=== PATIENT | female | born 1980 | race Caucasian/White ===

== ENCOUNTER 2017-03-02 09:15 | Emergency (ER) | payer BC ==
[~2017-03-02] VITALS: Ht 180.3 cm; Wt 101.2 kg
[~2017-03-02 09:15] MED LIST: FEXO180T84 PO; PREN-93 PO; RANI150T15 PO; TRAM-42 PO; TRAM50TA2 PO; flexeril
[2017-03-02] MEDS ORDERED: ORPHENADRINE 60 MG/2 ML (NORFLEX) AMP IM ONE (10:45)
[2017-03-02] MEDS ORDERED: KETOROLAC 60 MG/2 ML VIAL IM ONE (10:45)
[2017-03-02] MEDS ORDERED: TRAM-42 PO (10:46)
--- NOTE | 2017-03-02 10:46 | ED Upper Extremity ---
General Chief Complaint: Upper Extremity Stated Complaint: R SIDE ARM PAIN/TROUBLE BREATHING Nursing Triage Note: pt reports pain in right shoulder, arm, neck et side pain starting --relieved by ibuprofen. worsened on Friday, pain becoming severe. pain continues today. c/o pain with deep breathing et talking. Nursing Sepsis Screen: No Definite Risk Source: patient Exam Limitations: no limitations History of Present Illness Time seen by provider: 10:42 Initial Comments To ER with pain between the base of the neck and the right shoulder, pain to the right shoulder and arm worsened by movement of the right arm. Pain is also worsened by deep breathing. Denies any known injury. Onset: just prior to arrival Severity: moderate Pain/Injury Location: right shoulder, right arm Method of Injury: unknown Modifying Factors: Worse With Movement Allergies and Home Medications Allergies Coded Allergies: No Known Drug Allergies (Unverified Allergy, Unknown, 11/16/07) Home Medications Fexofenadine HCl 180 Mg Tablet, Unknown Dose PO, (Reported) Ranitidine HCl 150 Mg Tablet, Unknown Dose PO, (Reported) Tramadol HCl 50 Mg Tablet, Unknown Dose PO, (Reported) Tramadol HCl 50 Mg Tablet, 25-50 MG PO Q6H PRN for PAIN, #20 Prescribed by: BLADIMIR FRANCO on 07/21/15 0002 Tramadol HCl 50 Mg Tablet, 50 MG PO TID PRN for PAIN-MODERATE, #10 Prescribed by: JENA NOLAN on 03/02/17 1046 [flexeril] , Unknown Dose, (Reported) Constitutional: see HPI EENTM: see HPI Respiratory: no symptoms reported Cardiovascular: no symptoms reported Genitourinary: no symptoms reported Musculoskeletal: see HPI, muscle pain Skin: no symptoms reported Psychiatric/Neurological: No Symptoms Reported Past Rfwcsso-Keowrc-Xrhqyi Hx Patient Social History Alcohol Use: Denies Use Recreational Drug Use: No Smoking Status: Never a Smoker 2nd Hand Smoke Exposure: No Recent Foreign Travel: No Contact w/Someone Who Travel: No Recent Infectious Disease Expo: No Recent Hopitalizations: Yes () Immunizations Up To Date Tetanus Booster (TDap): Unknown PED Vaccines UTD: Yes Date of Influenza Vaccine: Jun 08, 2013 Seasonal Allergies Seasonal Allergies: Yes Surgeries HX Surgeries: Yes (r ovary removed) Surgeries: Appendectomy, Section, Gallbladder, Oophorectomy Respiratory Hx Respiratory Disorders: Yes Respiratory Disorders: Asthma Cardiovascular Hx Cardiac Disorders: No Neurological Hx Neurological Disorders: No Reproductive System Hx Reproductive Disorders: No Female Reproductive Disorders: Ovarian Cyst Genitourinary Hx Genitourinary Disorders: No Gastrointestinal Hx Gastrointestinal Disorders: No Musculoskeletal Hx Musculoskeletal Disorders: Yes Musculoskeletal Disorders: Arthritis, Chronic Back Pain Endocrine Hx Endocrine Disorders: No HEENT HX ENT Disorders: No ("sinus problems") Cancer Hx Cancer: No Psychosocial Hx Psychiatric Problems: No Integumentary HX Skin/Integumentary Disorder: No Blood Transfusions Hx Blood Disorders: No Adverse Reaction to a Blood Tr: No Family Medical History Significant Family History: DVT/PE, Diabetes, Hypertension Physical Exam Vital Signs Vital Sign - Last 12Hours 03/02/17 09:21 Temp 97.7 Pulse 93 Resp 16 B/P (MAP) 111/71 Capillary Refill : Less Than 3 Seconds General Appearance: WD/WN, no apparent distress HEENT: PERRL/EOMI, normal ENT inspection Neck: non-tender, full range of motion Respiratory: normal breath sounds, no respiratory distress, no accessory muscle use Gastrointestinal: non tender, soft Shoulder: No ecchymosis, limited ROM, pain, soft tissue tenderness, No swelling (the trapezius muscle is very tender to palpation. There is no sign of injury such as ecchymosis, abrasion or erythema.) Elbow/Forearm: normal inspection, non-tender, Right Wrist: Yes normal inspection, Yes non-tender Hand: normal inspection, non-tender Neurologic/Tendon: normal sensation, normal motor functions Neurologic/Psychiatric: alert, normal mood/affect, oriented x 3 Skin: normal color, warm/dry Progress/Results/Core Measures Results/Orders My Orders Orders - JENA NOLAN APRN Chest Pa/Lat (2 View) (03/02/17 10:28) Ketorolac Injection (Toradol Injection) (03/02/17 10:45) Orphenadrine Injection (Norflex Injectio (03/02/17 10:45) Medications Given in ED Current Medications Medications Dose Ordered Sig/Frances Route Start Time Stop Time Status Last Admin Dose Admin Ketorolac Tromethamine 60 mg ONCE ONCE IM 03/02/17 10:45 03/02/17 10:46 DC 03/02/17 10:48 60 MG Orphenadrine Citrate 60 mg ONCE ONCE IM 03/02/17 10:45 03/02/17 10:46 DC 03/02/17 10:48 60 MG Vital Signs/I&O Vital Sign - Last 12Hours 03/02/17 03/02/17 03/02/17 09:21 10:48 10:48 Temp 97.7 97.7 97.7 Pulse 93 Resp 16 B/P (MAP) 111/71 Blood Pressure Mean: 84 Diagnostic Imaging Diagonstic Imaging: Xray Plain Films/CT/US/NM/MRI: chest Comments NAME: KELLEE VARGAS [facility] REC#: [id number] PT STATUS: REG ER : 1980 PHYSICIAN: JENA NOLAN APRN ADMIT DATE: 03/02/17/ER Signed Date of Exam:03/02/17 CHEST PA/LAT (2 VIEW) INDICATION: Neck and chest pain. Shortness of air, worsening in severity. COMPARISON: 07/20/2015. FINDINGS: There is no evidence for pleural fluid or pneumothorax. The heart size is stable. There is borderline prominence in the perihilar interstitial lung markings and an element of reactive airway disease could not be excluded. No per alveolar consolidation. No vascular congestion. No free air beneath the diaphragms. IMPRESSION: Mild thickening of the central airways and peribronchial cuffing can be seen in reactive airway disease. No focal pneumonia, failure pattern or acute pleural pathology. Dictated by: Dictated on workstation # [id number] Dict: 03/02/17 1044 Trans: 03/02/17 1055 [facility] [id number] Interpreted by: PARKER CUADRA Electronically signed by: PARKER CUADRA 03/02/17 1055 Departure Impression Impression: Primary Impression: Muscle strain Disposition: HOME, SELF-CARE Condition: Stable Departure-Patient Inst. Decision time for Depature: 10:44 Referrals: BETZAIDA LI MD (PCP/Family) Primary Care Physician Patient Instructions: Muscle Spasms (DC) Add. Discharge Instructions: 1. If the pain persists, follow-up with your regular doctor later this week for reevaluation to make sure that we have the right diagnosis. Continue to use Tylenol and Motrin at home. All discharge instructions reviewed with patient and/or family. Voiced understanding. Scripts Tramadol HCl (Ultram) 50 Mg Tablet 50 MG PO TID Y for PAIN-MODERATE, #10 TAB Prov: JENA NOLAN APRN 03/02/17 JENA NOLAN APRN Mar 02, 2017 10:46
--- NOTE | 2017-03-02 10:58 | Diagnostic Imaging Report ---
INDICATION: Neck and chest pain. Shortness of air, worsening in severity. COMPARISON: 07/20/2015. FINDINGS: There is no evidence for pleural fluid or pneumothorax. The heart size is stable. There is borderline prominence in the perihilar interstitial lung markings and an element of reactive airway disease could not be excluded. No per alveolar consolidation. No vascular congestion. No free air beneath the diaphragms. IMPRESSION: Mild thickening of the central airways and peribronchial cuffing can be seen in reactive airway disease. No focal pneumonia, failure pattern or acute pleural pathology. Dictated by: Dictated on workstation # [id number]
[2017-03-02 11:09] VITALS: BP 111/71
--- OUTSIDE RECORDS SUMMARY | 2017-03-03 18:26 | XMS REPORT | Continuity of Care Document ---
Author Author [facility] Address Unknown Phone Unavailable Allergies Active Description Code Type Severity Reaction Onset Reported/Identified Relationship to Patient Clinical Status Yes No Known Drug Allergies [id number] Drug Allergy Unknown N/ A 11/16/2007 Medications Problems Date Dx Coded Attending Type Code Diagnosis Diagnosed By 07/22/2013 FRANCES FARAH DO V04.81 FLU SHOT 07/22/2013 PARIS JUNE APRN V04.81 FLU SHOT 09/12/2013 SHIRA HENNESSY, CRISTINA Otto Ot 623.8 09/12/2013 SHIRA HENNESSY, CRISTINA Otto Ot 625.3 04/27/2014 PARIS JUNE APRN V70.5 EXAM - PRE-EMPLOYMENT 07/21/2015 KAYE HENNESSY, BLADIMIR Thompson Ot R07.89 Procedures Code [place] [address] UA LONG DIP 04/27 Results Encounters ACCT No. Visit Date/Time Discharge Status Pt. Type Provider Facility Loc./Unit Complaint [id number] 04/27/2014 09:28:00 04/27/2014 23: 59:59 CLS Outpatient PARIS JUNE APRN [id number] 07/22/2013 11:00:00 07/22/2013 23: 59:59 CLS Outpatient FRANCES FARAH DO
== END 2017-03-02 11:09 | disposition home or self-care (01) ==
LOC: EDUNIT# 09:15 → ER 09:18
DX: M62.838 Other muscle spasm (principal)
CPT/HCPCS: 71020; 99282

== ENCOUNTER 2017-03-11 20:53 | Inpatient (IN) | payer BC ==
[~2017-03-11] VITALS: Ht 180.3 cm; Wt 102.6 kg
[2017-03-11] MEDS ORDERED: KETOROLAC 30 MG/ML VIAL IVP STA (21:17)
--- NOTE | 2017-03-11 21:27 | ED General ---
General Chief Complaint: Respiratory Problems Stated Complaint: L/R ARM PAIN,NECK PAIN,SOB Source of Information: Patient History of Present Illness Time Seen by Provider: 21:05 Initial Comments PT ARRIVES VIA POV FROM HOME--DROVE SELF HERE STATES SHE BEGAN HAVING RIGHT SHOULDER, NECK, RIB AND FLANK AND LOWER BACK PAIN 10 DAYS AGO WAS SEEN HERE 03/02/17 FOR THIS PROBLEM--WAS GIVEN SHOTS HERE AND RX FOR TRAMADOL. DID NOT FOLLOW UP WITH ANY ONE AFTER ER VISIT PT STATES SHE WAS DOING BETTER, THEN AT 0230 LAST PM, SHE BEGAN TO HAVE SEVERE PAIN ON THE LEFT SIDE--EXACT SAME AREAS STATES NOW SHE HAS PAIN ON BOTH SIDES, BUT IS WORSE ON THE LEFT NOW PAIN IS WORSE WITH ANY MOVEMENTS, BREATHING, COUGH/SNEEZING/HICCUPING, AND GETS SHARP PAIN WITH BREATHING AND FEELS SHORT OF BREATH TOOK TRAMADOL AT 0300, 0800 AND 1400 TODAY, AND TOOK 1 IBUPROFEN SOMETIME THIS AM-NO RELIEF NO FEVER HAS HAD A NON-PRODUCTIVE COUGH X 10 DAYS NO ABDOMINAL PAIN HAD NAUSEA AND VOMITED X [address] NO SWELLING IN LEGS/ FEET OR PAIN IN CALVES NO PALPITATIONS NO DIZZINESS NO RECENT TRAVEL, PROLONGED SITTING ETC. NO SWEATS NO PARESTHESIAS OR MOTOR DEFICITS NO HISTORY OF SIMILAR LMP 03/03/17. NORMAL. NO CONTROL PCP: DR. LI Allergies and Home Medications Allergies Coded Allergies: No Known Drug Allergies (Unverified , 11/16/07) Home Medications Fexofenadine HCl 180 Mg Tablet, Unknown Dose PO, (Reported) Ranitidine HCl 150 Mg Tablet, Unknown Dose PO, (Reported) Tramadol HCl 50 Mg Tablet, Unknown Dose PO, (Reported) Tramadol HCl 50 Mg Tablet, 25-50 MG PO Q6H PRN for PAIN, #20 Prescribed by: BLADIMIR FRANCO on 07/21/15 0002 Tramadol HCl 50 Mg Tablet, 50 MG PO TID PRN for PAIN-MODERATE, #10 Prescribed by: JENA NOLAN on 03/02/17 1046 [flexeril] , Unknown Dose, (Reported) Constitutional: no symptoms reported EENTM: no symptoms reported Respiratory: see HPI, cough, short of breath, No wheezing Cardiovascular: see HPI, chest pain, No edema, No palpitations, No syncope, No vascular heart diseas Gastrointestinal: see HPI, No abdominal pain, No loss of appetite, nausea, vomiting Genitourinary: no symptoms reported Musculoskeletal: see HPI Skin: no symptoms reported, other (PT STATES LATER THAT 01/26/17 SHE HAD SKIN LESIONS REMOVED BY DR. GILLIAM--WAS DONE AT [facility] AND PT WAS SEDATED. HAD 2 REMOVED FROM RIGHT LOWER LEG AND ONE FROM BACK OF NECK. PT STATES SHE WAS TOLD TO NOT DO ANY ACTIVITY FOR THE FIRST 24 HOURS, THEN ACTIVITIES TOLERATED AFTER THAT. PT HAS NOT HAD ANY PROBLEMS WITH PAIN OR SWELLING IN LEGS OR INFECTION IN WOUNDS ) Psychiatric/Neurological: No Symptoms Reported, Denies Headache, Denies Numbness, Denies Paresthesia, Denies Tingling, Denies Weakness Hematologic/Lymphatic: No Symptoms Reported Immunological/Allergic: no symptoms reported Past Bpuqsol-Zwpdur-Faxily Hx Patient Social History Alcohol Use: Denies Use Recreational Drug Use: No Smoking Status: Never a Smoker 2nd Hand Smoke Exposure: No Recent Foreign Travel: No Contact w/Someone Who Travel: No Recent Hopitalizations: No Immunizations Up To Date Tetanus Booster (TDap): Unknown PED Vaccines UTD: Yes Date of Influenza Vaccine: Jun 08, 2013 Seasonal Allergies Seasonal Allergies: Yes Surgeries HX Surgeries: Yes ( X 2 ; RIGHT OOPHORECTOMY) Surgeries: Appendectomy, Section, Gallbladder, Oophorectomy Respiratory Hx Respiratory Disorders: Yes (SEASONAL ASTHMA) Respiratory Disorders: Asthma Cardiovascular Hx Cardiac Disorders: No Neurological Hx Neurological Disorders: No Reproductive System Hx Reproductive Disorders: No Female Reproductive Disorders: Ovarian Cyst Genitourinary Hx Genitourinary Disorders: No Gastrointestinal Hx Gastrointestinal Disorders: No Musculoskeletal Hx Musculoskeletal Disorders: Yes Musculoskeletal Disorders: Arthritis, Chronic Back Pain Endocrine Hx Endocrine Disorders: No HEENT HX ENT Disorders: No ("sinus problems") Cancer Hx Cancer: No Psychosocial Hx Psychiatric Problems: No Integumentary HX Skin/Integumentary Disorder: No Blood Transfusions Hx Blood Disorders: No Adverse Reaction to a Blood Tr: No Family Medical History Significant Family History: DVT/PE, Diabetes, Hypertension Physical Exam Vital Signs Vital Sign - Last 12Hours 03/11/17 03/12/17 20:59 01:25 Temp 98.9 Pulse 101 Resp 20 B/P (MAP) 133/91 Pulse Ox 96 O2 Delivery Room Air Capillary Refill : General Appearance: No Apparent Distress, WD/WN, Other (DOES NOT APPEAR TO BE IN ANY DISCOMFORT. NO COUGH OR DYSPNEA AT ANY TIME DURING EXAM. MARKEDLY EXAGGERATED PAIN RESPONSE, AND PT MAKES A FIST AT ME DURING EXAM --WITH ME USING VERY LIGHT TOUCH WITH PALPATION AND WITH STETHOSCOPE. ) HEENT: PERRL/EOMI Neck: Full Range of Motion, Normal Inspection, Non Tender, Supple Respiratory: Normal Breath Sounds, No Accessory Muscle Use, No Respiratory Distress, Other (DIFFUSE CHEST WALL TENDERNESS) Cardiovascular: Regular Rate, Rhythm, No Edema, No JVD, No Murmur, Normal Peripheral Pulses Gastrointestinal: Normal Bowel Sounds, No Organomegaly, No Pulsatile Mass, Soft , Tenderness (LUQ AND EPIGASTRIC TENDERNESS) Back: Other (DIFFUSE BACK TENDERNESS) Extremity: Normal Capillary Refill, Normal Inspection, Normal Range of Motion, Non Tender, No Calf Tenderness, No Pedal Edema Neurologic/Psychiatric: Alert, Oriented x3, No Motor/Sensory Deficits, Normal Mood/Affect, at risk paraprofessional II-XII Norm as Tested Skin: Normal Color, Warm/Dry, No Rash, Other (SITES OF PREVIOUS SKIN LESION REMOVALS TO RIGHT LOWER LEG AND POSTERIOR NECK ARE ALL WELL-HEALED WITH NO SIGNS OF INFECTION--SCABS STILL IN PLACE ON LEG) Progress/Results/Core Measures Results/Orders Lab Results Laboratory Tests Test 03/11/17 21:25 03/11/17 23:20 03/12/17 00:30 03/12/17 03:45 Range/Units White Blood Count 11.1 H 4.3-11.0 10^3/uL Red Blood Count 4.03 L 4.35-5.85 10^6/uL Hemoglobin 12.3 11.5-16.0 G/DL Hematocrit 37 35-52 % Mean Corpuscular Volume 91 80-99 FL Mean Corpuscular Hemoglobin 31 25-34 PG Mean Corpuscular Hemoglobin Concent 33 32-36 G/DL Red Cell Distribution Width 12.4 10.0-14.5 % Platelet Count 335 130-400 10^3/uL Mean Platelet Volume 9.9 7.4-10.4 FL Neutrophils (%) (Auto) 79 H 42-75 % Lymphocytes (%) (Auto) 12 12-44 % Monocytes (%) (Auto) 8 0-12 % Eosinophils (%) (Auto) 1 0-10 % Basophils (%) (Auto) 0 0-10 % Neutrophils # (Auto) 8.8 H 1.8-7.8 X 10^3 Lymphocytes # (Auto) 1.3 1.0-4.0 X 10^3 Monocytes # (Auto) 0.9 0.0-1.0 X 10^3 Eosinophils # (Auto) 0.1 0.0-0.3 10^3/uL Basophils # (Auto) 0.0 0.0-0.1 10^3/uL Prothrombin Time 14.3 12.2-14.7 SEC INR Comment 1.1 0.8-1.4 Activated Partial Thromboplast Time 28 24-35 SEC Sodium Level 140 135-145 MMOL/L Potassium Level 3.6 3.6-5.0 MMOL/L Chloride Level 103 98-107 MMOL/L Carbon Dioxide Level 21 21-32 MMOL/L Anion Gap 16 H 5-14 MMOL/L Blood Urea Nitrogen 14 7-18 MG/DL Creatinine 0.81 0.60-1.30 MG/DL Estimat Glomerular Filtration Rate > 60 BUN/Creatinine Ratio 17 Glucose Level 135 H 70-105 MG/DL Calcium Level 9.3 8.5-10.1 MG/DL Magnesium Level 1.9 1.8-2.4 MG/DL Total Bilirubin 0.4 0.1-1.0 MG/DL Aspartate Amino Transf (AST/SGOT) 13 5-34 U/L Alanine Aminotransferase (ALT/SGPT) 21 0-55 U/L Alkaline Phosphatase 85 40-136 U/L Total Creatine Kinase 35 29-168 U/L Creatine Kinase MB 0.3 <6.6 NG/ML Troponin I < 0.30 <0.30 NG/ML B-Type Natriuretic Peptide 42.3 <100.0 PG/ML Total Protein 7.9 6.4-8.2 GM/DL Albumin 4.0 3.2-4.5 GM/DL Amylase Level 15 L 25-125 U/L Lipase 13 8-78 U/L Serum Test, Qualitative NEGATIVE NEGATIVE Lactic Acid Level 1.99 0.50-2.00 MMOL/L My Orders Orders - ROSALBA ALVAREZ DO Amylase (03/11/17 21:17) Cbc With Automated Diff (03/11/17 21:17) Comprehensive Metabolic Panel (03/11/17 21:17) Creatine Kinase (03/11/17 21:17) Creatine Kinase Mb (03/11/17 21:17) Lipase (03/11/17 21:17) Partial Thromboplastin Time (03/11/17 21:17) Protime With Inr (03/11/17 21:17) Troponin I (03/11/17 21:17) Chest 1 View, Ap/Pa Only (03/11/17 21:17) O2 (03/11/17 21:17) Ekg Tracing (03/11/17 21:17) Aspirin Chewable Tablet (Baby Aspirin Ch (03/11/17 21:30) BNP (03/11/17 21:17) Monitor-Rhythm Ecg Trace Only (03/11/17 21:17) Hcg,Qualitative Serum (03/11/17 21:17) Magnesium (03/11/17 21:17) Ketorolac Injection (Toradol Injection) (03/11/17 21:17) Ct Angio Chest W (03/11/17 22:15) Lactic Acid Analyzer (03/11/17 22:25) Blood Culture (03/11/17 22:25) Iohexol Injection (Omnipaque 350 Mg/Ml 1 (03/11/17 23:30) Ns (Ivpb) (Sodium Chloride 0.9% Ivpb Bag (03/11/17 23:30) Ceftriaxone Injection (Rocephin Injectio (03/11/17 23:45) Enoxaparin Injection (Lovenox Injection) (03/11/17 23:45) Medications Given in ED Current Medications Medications Dose Ordered Sig/Frances Route Start Time Stop Time Status Last Admin Dose Admin Aspirin 324 mg ONCE ONCE PO 03/11/17 21:30 03/11/17 21:31 DC 03/11/17 21:41 324 MG Ceftriaxone Sodium 1000 mg/ Sodium Chloride 50 ml @ 100 mls/hr ONCE ONCE IV 03/11/17 23:45 03/12/17 00:14 DC 03/12/17 01:02 100 MLS/HR Enoxaparin Sodium 100 mg ONCE ONCE SC 03/11/17 23:45 03/11/17 23:46 DC 03/12/17 01:02 100 MG Iohexol 125 ml ONCE ONCE IV 03/11/17 23:30 03/12/17 00:51 DC 03/11/17 23:22 125 ML Sodium Chloride 80 ml ONCE ONCE IV 03/11/17 23:30 03/12/17 00:51 DC 03/11/17 23:22 80 ML Vital Signs/I&O Vital Sign - Last 12Hours 03/11/17 03/11/17 03/11/17 03/12/17 20:59 21:41 21:41 01:25 Temp 98.9 98.9 98.9 98.9 Pulse 101 89 Resp 20 20 B/P (MAP) 133/91 Pulse Ox 96 O2 Delivery Room Air Room Air 03/12/17 03/12/17 03/12/17 03/12/17 01:28 01:30 01:34 01:45 Temp 97.9 Pulse 91 96 92 Resp 30 34 B/P (MAP) 125/80 130/94 Pulse Ox 98 98 99 O2 Delivery Room Air Room Air Room Air 03/12/17 03/12/17 03/12/17 03/12/17 01:51 01:56 02:00 02:30 Pulse 90 82 Resp 25 26 B/P (MAP) 134/87 131/76 Pulse Ox 97 97 97 92 O2 Delivery Room Air Room Air Room Air 03/12/17 03/12/17 03/12/17 03:00 03:30 04:00 Pulse 86 86 Resp 22 23 B/P (MAP) 126/80 120/77 Pulse Ox 98 97 98 O2 Delivery Room Air Room Air Room Air Progress Note : Progress Note PAIN EASED WITH TORADOL NO COUGH OR DYSPNEA AT ANY TIME DURING ER STAY ALL VITALS REMAINED STABLE AND WNL THROUGHOUT ER STAY ECG Initial ECG Impression Time: 21:04 Initial ECG Rate: 97 Initial ECG Rhythm: Normal Sinus Initial ECG Impression: Normal Initial ECG Comparisson: No Previous ECG Available Diagnostic Imaging Comments CXR--RLL INFILTRATE, PER RADIOLOGIST REPORT @ 2215 CT CHEST ANGIOGRAM--BILATERAL P.E.'S WITH RIGHT PULMONARY INFARCT AND/OR INFILTRATE--PER RADIOLOGIST VIA PHONE AT [id number] Reviewed: Reviewed by Me Departure Communication Progress Notes [id number]--SPOKE WITH DR. LI, ACCEPTS PT FOR ADMIT. ORDERS NOTED. WILL CONSULT PULMONOLOGY AND HEMATOLOGY IN AM Impression Impression: Primary Impression: Bilateral pulmonary embolism Additional Impression: RIGHT PULMONARY INFILTRATE AND/OR INFARCT Disposition: ADMITTED INPATIENT Condition: Improved Decision to Admit Reason: Admit from ER (General) Decision to Admit/Date: Mar 11, 2017 Time/Decision to Admit Time: 23:45 Departure-Patient Inst. Referrals: BETZAIDA LI MD (PCP/Family) Primary Care Physician ROSALBA ALVAREZ DO Mar 11, 2017 21:27
[2017-03-11] MEDS ORDERED: ASPIRIN 81 MG CHEW (CHILDREN'S ASA) PO ONE (21:30)
[2017-03-11 21:35] LABS: BASOPHILS % (AUTO) 0 % (0-10); EOSINOPHILS # (AUTO) 0.1 10^3/uL (0.0-0.3); EOSINOPHILS % (AUTO) 1 % (0-10); LYMPHOCYTES # (AUTO) 1.3 X 10^3 (1.0-4.0); LYMPHOCYTES % (AUTO) 12 % (12-44); MEAN CORPUSCULAR HEMOGLOBIN 31 PG (25-34); MEAN CORPUSCULAR HGB CONC 33 G/DL (32-36); MEAN CORPUSCULAR VOLUME 91 FL (80-99); MEAN PLATELET VOLUME 9.9 FL (7.4-10.4); MONOCYTES # (AUTO) 0.9 X 10^3 (0.0-1.0); MONOCYTES % (AUTO) 8 % (0-12); NEUTROPHILS # (AUTO) 8.8 X 10^3 (1.8-7.8); NEUTROPHILS % (AUTO) 79 % (42-75); PLATELET COUNT 335 10^3/uL (130-400); RED BLOOD COUNT 4.03 10^6/uL (4.35-5.85); RED CELL DISTRIBUTION WIDTH 12.4 % (10.0-14.5); WHITE BLOOD COUNT 11.1 10^3/uL (4.3-11.0)
[2017-03-11 21:46] LABS: INR 1.1 (0.8-1.4); PROTHROMBIN TIME PATIENT 14.3 SEC (12.2-14.7)
[2017-03-11 22:00] LABS: ALANINE AMINOTRANSFERASE 21 U/L (0-55); AMYLASE 15 U/L (25-125); ANION GAP 16 MMOL/L (5-14); ASPARTATE AMINO TRANSFERASE 13 U/L (5-34); BILIRUBIN,TOTAL 0.4 MG/DL (0.1-1.0); BLOOD UREA NITROGEN 14 MG/DL (7-18); BUN/CREATININE RATIO 17; CALCIUM 9.3 MG/DL (8.5-10.1); CARBON DIOXIDE 21 MMOL/L (21-32); CHLORIDE 103 MMOL/L (98-107); CREATINE KINASE 35 U/L (29-168); CREATININE SERUM 0.81 MG/DL (0.60-1.30); GFR ESTIMATED > 60; GLUCOSE 135 MG/DL (70-105); LIPASE 13 U/L (8-78); MAGNESIUM 1.9 MG/DL (1.8-2.4); POTASSIUM 3.6 MMOL/L (3.6-5.0); SODIUM 140 MMOL/L (135-145); TOTAL PROTEIN 7.9 GM/DL (6.4-8.2)
--- NOTE | 2017-03-11 22:01 | Diagnostic Imaging Report ---
EXAM: Portable erect AP chest at 9:47 p.m. INDICATION: Chest pain. FINDINGS: The heart size is within normal limits and stable when compared to 03/02/17. In the interval since the previous study, a vague area of increased density has developed in the right lung base. The right hemidiaphragm is partially obscured and most likely this abnormal density is related to pneumonia/atelectasis. There may be a small amount of fluid in this area, as well. The right upper lung and left lung are generally clear. The mediastinum is not widened and the osseous structures are intact. IMPRESSION: The appearance of the chest has worsened since the prior study as right lower lobe pneumonia/atelectasis has developed. A follow study would be recommended for continued evaluation. Dictated by: Dictated on workstation # [id number]
[2017-03-11 22:06] LABS: TROPONIN I < 0.30 NG/ML (<0.30)
[2017-03-11] MEDS ORDERED: NS 100 ML (IVPB) BAG IV ONE (23:30)
[2017-03-11] MEDS ORDERED: IOHEXOL 350 MG/ML 150 ML (OMNIPAQUE 350) VIAL IV ONE (23:30)
[2017-03-11] MEDS ORDERED: ENOXAPARIN 100 MG/1 ML (LOVENOX) SYR SC ONE (23:45)
[2017-03-11] MEDS ORDERED: cefTRIAXone INJECTION 1,000 MG in NS (IVPB) 50 ML IV ONE (23:45)
[2017-03-12] VITALS (16 sets, daily range): BP systolic 109–137; BP diastolic 61–94
[2017-03-12] MEDS ORDERED: AZITHROMYCIN INJECTION 500 MG in NS (IVPB) 250 ML IV ONE (02:00)
[2017-03-12] MEDS ORDERED: NS (IVPB) 250 ML ONE (02:22)
[2017-03-12] MEDS ORDERED: AZITHROMYCIN 500 MG (ZITHROMAX) VIAL ONE (02:23)
[2017-03-12] MEDS: ONDANSETRON 4 MG/2 ML (SDV) Z0FRAN IVP PRN ×5 (03:21→22:43)
[2017-03-12 04:21] LABS: BASOPHILS % (AUTO) 0 % (0-10); EOSINOPHILS # (AUTO) 1.8 10^3/uL (0.0-0.3); EOSINOPHILS % (AUTO) 12 % (0-10); LYMPHOCYTES # (AUTO) 1.9 X 10^3 (1.0-4.0); LYMPHOCYTES % (AUTO) 13 % (12-44); MEAN CORPUSCULAR HEMOGLOBIN 31 PG (25-34); MEAN CORPUSCULAR HGB CONC 34 G/DL (32-36); MEAN CORPUSCULAR VOLUME 92 FL (80-99); MEAN PLATELET VOLUME 10.7 FL (7.4-10.4); MONOCYTES # (AUTO) 1.7 X 10^3 (0.0-1.0); MONOCYTES % (AUTO) 12 % (0-12); NEUTROPHILS # (AUTO) 9.3 X 10^3 (1.8-7.8); NEUTROPHILS % (AUTO) 63 % (42-75); PLATELET COUNT 386 10^3/uL (130-400); RED BLOOD COUNT 3.75 10^6/uL (4.35-5.85); RED CELL DISTRIBUTION WIDTH 12.6 % (10.0-14.5); WHITE BLOOD COUNT 14.7 10^3/uL (4.3-11.0)
[2017-03-12 04:45] LABS: ALANINE AMINOTRANSFERASE 21 U/L (0-55); ALBUMIN 3.5 GM/DL (3.2-4.5); ANION GAP 15 MMOL/L (5-14); ASPARTATE AMINO TRANSFERASE 29 U/L (5-34); BILIRUBIN,TOTAL 0.3 MG/DL (0.1-1.0); BLOOD UREA NITROGEN 12 MG/DL (7-18); BUN/CREATININE RATIO 15; CALCIUM 8.5 MG/DL (8.5-10.1); CARBON DIOXIDE 16 MMOL/L (21-32); CHLORIDE 106 MMOL/L (98-107); CREATININE SERUM 0.78 MG/DL (0.60-1.30); GFR ESTIMATED > 60; GLUCOSE 96 MG/DL (70-105); POTASSIUM 4.3 MMOL/L (3.6-5.0); SODIUM 137 MMOL/L (135-145); TOTAL PROTEIN 7.8 GM/DL (6.4-8.2)
[2017-03-12] MEDS ORDERED: PANTOPRAZOLE 40 MG (PROTONIX) TAB PO SCH (07:00)
--- NOTE | 2017-03-12 08:40 | Diagnostic Imaging Report ---
PROCEDURE: CT angiography of the chest with contrast. TECHNIQUE: Multiple contiguous axial images were obtained through the chest after uneventful bolus administration of intravenous contrast. Reconstructed CTA MIP acquisitions were also performed. INDICATION: Bilateral arm and neck pain. 125 ML of Omnipaque 350 is administered intravenously. Findings: The pulmonary arteries are well opacified with multiple filling defects seen bilaterally mostly involving the lobar branches on the right side and the left lower lobe branch on the left. No PE in the main pulmonary artery or in the pulmonary trunk. There is a small right pleural effusion and right lower lobe partial atelectasis along the effusion. The left lung demonstrate mild nonspecific consolidation in the inferior lingula. This has a subsegmental pleural-based configuration and could potentially represent a small pulmonary infarct. The mediastinum demonstrate normal caliber of the thoracic aorta. There is no mediastinal mass. No mediastinal or hilar lymphadenopathy. No axillary lymphadenopathy. Sections in the upper abdomen demonstrates cholecystectomy clips. The osseous structures appear grossly unremarkable. IMPRESSION: 1. Low to moderate burden of a pulmonary embolism is seen bilaterally. 2. There is associated small right pleural effusion and right basilar atelectasis. Subsegmental inferior lingula consolidation is nonspecific and could also be related to atelectasis or possibly pulmonary infarct component. This reading agrees with the [facility] report. The pulmonary embolus findings were discussed by the [facility] radiologist with Dr. Nelson at 03/11/2017 at 2337 hrs. Dictated by: Dictated on workstation # [id number]
--- NOTE | 2017-03-12 08:59 | Consultation ---
History of Present Illness History of Present Illness Patient Consulted On(joanne/time) 03/12/17 08:53 Date Seen by Provider: Mar 12, 2017 Time Seen by Provider: 08:40 History of Present Illness This is a 36 year old lady adm via ED with complaints of worsening shortness of air, right sided pleuritic chest pain and right sided weakness. She denies OCP use, recent long car rides, air travel or other prolonged immobility. Similar chest pain and SOB occurred 10 days ago and patient was seen in ED but did not follow up with PMD, Dr. Hart. She does report having 2 cysts removed from her right lower leg and left back of neck by Dr. Montalvo 2 months ago but has had no other recent surgeries. She states her mother was on warfarin for blood clots in her late 40's and that her paternal grandmother also had a history of blood clots. Allergies and Home Medications Allergies Coded Allergies: No Known Drug Allergies (Unverified , 11/16/07) Home Medications Acetaminophen/Caffeine 1 Each Tablet, 2 TAB PO DAILY PRN for SEVERE HEADACHE, ( Reported) Bismuth Subsalicylate 262 Mg/15 Ml Oral.susp, 30 ML PO UD PRN for DIARRHEA, ( Reported) Cetirizine HCl 10 Mg Tablet, 10 MG PO DAILY, (Reported) Fluticasone Propionate 16 Gm [place].susp, 1 SPRAY NS BID PRN for ALLERGIES, ( Reported) Ibuprofen 200 Mg Tablet, 400 MG PO Q8H PRN for MILD HEADACHE, (Reported) Lactobacillus Acidophilus 1 Each Capsule, 1 CAP PO DAILY, (Reported) Levothyroxine Sodium 50 Mcg Tablet, 50 MCG PO DAILY, (Reported) Montelukast Sodium 10 Mg Tablet, 10 MG PO HS, (Reported) Naproxen Sodium 220 Mg Tablet, 440 MG PO Q8H PRN for ARTHRITIS PAIN, (Reported) TAKES 2 (220MG) TABLETS Phenylephrine/Dm/Acetaminop/GG 1 Each Tablet, 1 TAB PO BID PRN for COLD, ( Reported) Ranitidine HCl 150 Mg Tablet, 300 MG PO HS, (Reported) TAKES 2 (150MG) TABLETS Tramadol HCl 50 Mg Tablet, 50 MG PO TID PRN for PAIN-MODERATE, (Reported) Vitamin B Complex 1 Each Capsule, 1 CAP PO DAILY, (Reported) Past Vchenoy-Cagiud-Efdybw Hx Patient Social History Alcohol Use: Denies Use Recreational Drug Use: No Smoking Status: Never a Smoker 2nd Hand Smoke Exposure: No Recent Foreign Travel: No Contact w/Someone Who Travel: No Recent Infectious Disease Expo: No Recent Hopitalizations: No Physical Abuse Screen: No Sexual Abuse: No Immunizations Up To Date Tetanus Booster (TDap): Unknown PED Vaccines UTD: Yes Date of Influenza Vaccine: Jun 08, 2013 Seasonal Allergies Seasonal Allergies: Yes Surgeries HX Surgeries: Yes ( X 2 ; RIGHT OOPHORECTOMY) Surgeries: Appendectomy, Section, Gallbladder, Oophorectomy Respiratory Hx Respiratory Disorders: Yes (SEASONAL ASTHMA) Respiratory Disorders: Asthma Cardiovascular Hx Cardiac Disorders: No Neurological Hx Neurological Disorders: No Reproductive System : No Hx Reproductive Disorders: No Female Reproductive Disorders: Ovarian Cyst Genitourinary Hx Genitourinary Disorders: No Gastrointestinal Hx Gastrointestinal Disorders: No Musculoskeletal Hx Musculoskeletal Disorders: Yes Musculoskeletal Disorders: Arthritis, Chronic Back Pain Endocrine Hx Endocrine Disorders: No HEENT HX ENT Disorders: No ("sinus problems") Cancer Hx Cancer: No Psychosocial Hx Psychiatric Problems: No Integumentary HX Skin/Integumentary Disorder: No Blood Transfusions Hx Blood Disorders: No Adverse Reaction to a Blood Tr: No Family Medical History Significant Family History: DVT/PE, Diabetes, Hypertension Family Medial History: Asthma 19 MOTHER Cardiovascular disease 19 FATHER (heart problems) Cataracts G8 BROTHER (surgery x2 on eyes) Deafness or hearing loss G8 BROTHER (ear problems surgery on ears) Diabetes mellitus 19 FATHER Hypercholesterolemia 19 MOTHER Hypertension 19 FATHER 19 MOTHER Respiratory disorder G8 BROTHER (smokes) Physical Exam-General Problems Physical Exam Vital Signs Vital Sign - Last 12Hours 03/11/17 03/12/17 20:59 01:25 Temp 98.9 Pulse 101 Resp 20 B/P (MAP) 133/91 Pulse Ox 96 O2 Delivery Room Air Capillary Refill : Less Than 3 Seconds General Appearance: WD/WN, no apparent distress HEENT: PERRL/EOMI Neck: non-tender, full range of motion, other (well healed scar left lower neck ;) Cardiovascular: regular rate, rhythm Gastrointestinal: normal bowel sounds, non tender, soft Rectal: deferred Comments Laboratory Tests 03/11/17 21:25 03/12/17 03:45 RADIOLOGY REVIEW: CT Angio Chest done 03/11/17:IMPRESSION: 1. Low to moderate burden of a pulmonary embolism is seen bilaterally. 2. There is associated small right pleural effusion and right basilar atelectasis. Subsegmental inferior lingula consolidation is nonspecific and could also be related to atelectasis or possibly pulmonary infarct component. Bilateral lower extremity venous Doppler done 03/12/17:FINDINGS: The lower extremity veins from the common femoral veins to below the knee veins were examined with normal color-flow, compressibility and normal waveform demonstrated. The great saphenous vein bilaterally is patent. IMPRESSION: No evidence of DVT in either lower extremity. Echocardiogram results pending. Assessment/Plan Assessment/Plan Admission Diagnosis/Plan 1. Bilateral Pulmonary Emboli--agree with Lovenox then switch to Xarelto when stability is established; a. Bilateral Dopplers of lower extremity were negative for DVT b. Echocardiogram results pending. 2. Small Right Pleural Effusion and Infiltrate--Continue IV antibiotics 3. Positive Family History order [id number], FVL, and Lupus anticoag testing; Other testing not currently appropriate in acute setting; 4. Obesity Clinical Quality Measures DVT/VTE Risk/Contraindication: Risk Factor Score Per Nursin RFS Level Per Nursing on Admit: 3=High LULU DILLON MD Mar 12, 2017 08:59
--- NOTE | 2017-03-12 09:04 | History & Physicial ---
History of Present Illness History of Present Illness Reason for visit/HPI PT REPORTS THAT SHE HAS BEEN ILL FOR THE PAST FEW WEEKS. SHE WAS SEEN IN THE EMERGENCY DEPARTMENT FOR RIGHT SIDED CHEST PAIN - WAS TOLD IT WAS MOST-LIKELY COSTOCHONDRITIS AND WAS GIVEN MEDICATION FOR THE INFLAMMATION. THE PAIN MEDICATION IMPROVED HER SYMPTOMS, AND SHE WAS FEELING BETTER. SHE REPORTS THAT THE SHORTNESS OF BREATH STARTED ON FRIDAY AND YESTERDAY THE SYMPTOMS INCREASED AND SHE DECIDED TO PRESENT TO THE EMERGENCY DEPARTMENT. SHE REPORTS THAT SHE HAS FAMILY HISTORY OF BLOOD CLOTS, BUT IS NOT COMPLETELY CERTAIN OF THE HISTORY. Date of Admission Mar 11, 2017 at 23:45 Time Seen by Provider: 08:10 I consulted on this patient on 03/12/17 08:10 Attending Physician Betzaida Hart MD Admitting Physician Betzaida Hart MD Consult DR HANCOCK AND DR. DILLON Allergies and Home Medications Allergies Coded Allergies: No Known Drug Allergies (Unverified , 11/16/07) Home Medications Acetaminophen/Caffeine 1 Each Tablet, 2 TAB PO DAILY PRN for SEVERE HEADACHE, ( Reported) Bismuth Subsalicylate 262 Mg/15 Ml Oral.susp, 30 ML PO UD PRN for DIARRHEA, ( Reported) Cetirizine HCl 10 Mg Tablet, 10 MG PO DAILY, (Reported) Fluticasone Propionate 16 Gm [place].susp, 1 SPRAY NS BID PRN for ALLERGIES, ( Reported) Ibuprofen 200 Mg Tablet, 400 MG PO Q8H PRN for MILD HEADACHE, (Reported) Lactobacillus Acidophilus 1 Each Capsule, 1 CAP PO DAILY, (Reported) Levothyroxine Sodium 50 Mcg Tablet, 50 MCG PO DAILY, (Reported) Montelukast Sodium 10 Mg Tablet, 10 MG PO HS, (Reported) Naproxen Sodium 220 Mg Tablet, 440 MG PO Q8H PRN for ARTHRITIS PAIN, (Reported) TAKES 2 (220MG) TABLETS Phenylephrine/Dm/Acetaminop/GG 1 Each Tablet, 1 TAB PO BID PRN for COLD, ( Reported) Ranitidine HCl 150 Mg Tablet, 300 MG PO HS, (Reported) TAKES 2 (150MG) TABLETS Tramadol HCl 50 Mg Tablet, 50 MG PO TID PRN for PAIN-MODERATE, (Reported) Vitamin B Complex 1 Each Capsule, 1 CAP PO DAILY, (Reported) Past Gnivwzw-Ehmalj-Gsdcwt Hx Patient Social History Marrital Status: single Living Status: LIVES AT HOME WITH HER FAMILY Employed/Student: part-time employed Alcohol Use: Denies Use Recreational Drug Use: No Smoking Status: Never a Smoker 2nd Hand Smoke Exposure: No Physical Abuse Screen: No Sexual Abuse: No Recent Foreign Travel: No Contact w/other who traveled: No Recent Hopitalizations: No Recent Infectious Disease Expo: No Immunizations Up To Date Tetanus Booster (TDap): Unknown Date of Influenza Vaccine: Jun 08, 2013 Seasonal Allergies Seasonal Allergies: Yes Surgeries HX Surgeries: Yes ( X 2 ; RIGHT OOPHORECTOMY) Surgeries: Appendectomy, Section, Gallbladder, Oophorectomy Respiratory Hx Respiratory Disorders: Yes (SEASONAL ASTHMA) Cardiovascular Hx Cardiovascular Disorders: No Neurological Hx Neurological Disorders: No Reproductive System : No Hx Reproductive Disorders: No Sexually Transmitted Disease: No HIV/AIDS: No Female Reproductive Disorders: Denies, Ovarian Cyst Genitourinary Hx Genitourinary Disorders: No Gastrointestinal Hx Gastrointestinal Disorders: No Musculoskeletal Hx Musculoskeletal Disorders: Yes Musculoskeletal Disorders: Arthritis, Chronic Back Pain Endocrine Hx Endocrine Disorders: No HEENT HX ENT Disorders: Yes ("sinus problems") Cancer Hx Cancer: No Psychosocial Hx Psychiatric Problems: No Integumentary HX Skin/Integumentary Disorder: No Blood Transfusions Hx Blood Disorders: No Adverse Reaction to a Blood Tr: No Reviewed Nursing Assessment Reviewed/Agree w Nursing PMH: Yes Family Medical History Significant Family History: DVT/PE, Diabetes, Hypertension Family Hx: Asthma 19 MOTHER Cardiovascular disease 19 FATHER (heart problems) Cataracts G8 BROTHER (surgery x2 on eyes) Deafness or hearing loss G8 BROTHER (ear problems surgery on ears) Diabetes mellitus 19 FATHER Hypercholesterolemia 19 MOTHER Hypertension 19 FATHER 19 MOTHER Respiratory disorder G8 BROTHER (smokes) Constitutional: No chills, diaphoresis, No fever, malaise, weakness EENTM: No hoarseness, No mouth pain, No throat pain Respiratory: cough, dyspnea on exertion, orthopnea, short of breath, No wheezing Cardiovascular: chest pain, No edema Gastrointestinal: No abdominal pain, No loss of appetite Genitourinary: no symptoms reported Musculoskeletal: back pain, muscle weakness Skin: No dryness, No rash Psychiatric/Neurological: Denies Anxiety, Denies Depressed All Other Systems Reviewed Negative Unless Noted: Yes Physical Exam Vital Signs Vital Sign - Last 12Hours 03/11/17 03/12/17 20:59 01:25 Temp 98.9 Pulse 101 Resp 20 B/P (MAP) 133/91 Pulse Ox 96 O2 Delivery Room Air Capillary Refill : Less Than 3 Seconds General Appearance: WD/WN, Mild Distress Eyes: Bilateral Eye EOMI, Bilateral Eye Normal Inspection, Bilateral Eye PERRL HEENT: PERRL/EOMI, Pharynx Normal Neck: Full Range of Motion, Supple Respiratory: Chest Non Tender, Crackles, Decreased Breath Sounds Cardiovascular: Regular Rate, Rhythm, No Edema, No Murmur, Normal Peripheral Pulses Gastrointestinal: Normal Bowel Sounds, No Organomegaly, Soft Rectal: Deferred Back: Normal Inspection, No CVA Tenderness, No Vertebral Tenderness Extremity: Normal Capillary Refill, Normal Range of Motion, Non Tender, No Calf Tenderness, No Pedal Edema Neurologic/Psychiatric: Alert, Oriented x3, No Motor/Sensory Deficits, Normal Mood/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 START ON HUMIDIFIED OXYGEN CONTINUOUSLY AT THIS TIME TO HELP DECREASE DYSPNEA SYMPTOMS AND DECREASE WORK OF BREATHING. - CHECK ECHO - CHECK BILATERAL LOWER EXTREMITIES VENOUS DOPPLERS - CONSULTATION TO DR. LULU DILLON - ONCOLOGY FOR BLOOD CLOTTING WORK-UP- PLANNING ON OUTPATIENT WORK UP. - DISCUSSED WITH DR. HANCOCK AND DR. DILLON - WE WILL DO 6 MONTHS OF BLOOD THINNING - CONTINUE WITH LOVENOX AT THIS TIME AND PRIOR TO DISCHARGE WILL PLACE PT ON XARELTO FOR CONTINUED OUTPATIENT TREATMENT. DYSPNEA - OXYGEN CONTINUOUSLY AT THIS TIME, WILL NEED AMBULATORY OXYGEN LEVEL DONE PRIOR TO DISCHARGE. CHEST PAIN - PRN PAIN MEDICATION. PNEUMONIA - IV ANTIBIOTICS - MONITOR CHEST XRAYS - WILL CONTINUE WITH ANTIBIOTICS - ROCEPHIN - IV UNTIL DISCHARGE, AND AZITHROMYCIN ORALLY X 4 DAYS. GI PROPHYLAXIS - START ON PROTONIX BID DVT PROPHYLAXIS - SEE REASON FOR ADMISSION - PT HAS BLOOD CLOTS - PT ON LOVENOX. Problems: Admission Diagnosis BILATERAL PULMONARY ARTERY EMBOLISMS DYSPNEA CHEST PAIN PNEUMONIA Clinical Quality Measures DVT/VTE Risk/Contraindication: Risk Factor Score Per Nursin RFS Level Per Nursing on Admit: 3=High BETZAIDA HART MD Mar 12, 2017 09:04
--- NOTE | 2017-03-12 09:18 | Pulmonary Consultation ---
History of Present Illness History of Present Illness Date of Consultation 03/12/17 09:16 Time Seen by Provider: 07:16 Date of Admission History of Present Illness 36yo presented to ED secondary to worsenign SOB and right sided pleuritic CP. CT scan shows bilateral PEs. SHe has no hx of PEs in the past. No OCP or recent travel. She had similar episodes 10days ago however upon admission symptoms were much worse. She recently had 2 cyst removed form RLE and back of neck 2 mo ago. Her mother also has a hx of blood clots and was on coumadin. I am consulted for pulmonary management. Allergies and Home Medications Allergies Coded Allergies: No Known Drug Allergies (Unverified , 11/16/07) Home Medications Acetaminophen/Caffeine 1 Each Tablet, 2 TAB PO DAILY PRN for SEVERE HEADACHE, ( Reported) Bismuth Subsalicylate 262 Mg/15 Ml Oral.susp, 30 ML PO UD PRN for DIARRHEA, ( Reported) Cetirizine HCl 10 Mg Tablet, 10 MG PO DAILY, (Reported) Fluticasone Propionate 16 Gm [place].susp, 1 SPRAY NS BID PRN for ALLERGIES, ( Reported) Ibuprofen 200 Mg Tablet, 400 MG PO Q8H PRN for MILD HEADACHE, (Reported) Lactobacillus Acidophilus 1 Each Capsule, 1 CAP PO DAILY, (Reported) Levothyroxine Sodium 50 Mcg Tablet, 50 MCG PO DAILY, (Reported) Montelukast Sodium 10 Mg Tablet, 10 MG PO HS, (Reported) Naproxen Sodium 220 Mg Tablet, 440 MG PO Q8H PRN for ARTHRITIS PAIN, (Reported) TAKES 2 (220MG) TABLETS Phenylephrine/Dm/Acetaminop/GG 1 Each Tablet, 1 TAB PO BID PRN for COLD, ( Reported) Ranitidine HCl 150 Mg Tablet, 300 MG PO HS, (Reported) TAKES 2 (150MG) TABLETS Tramadol HCl 50 Mg Tablet, 50 MG PO TID PRN for PAIN-MODERATE, (Reported) Vitamin B Complex 1 Each Capsule, 1 CAP PO DAILY, (Reported) Past Larywyv-Tzeufi-Rhqryu Hx Patient Social History Alcohol Use: Denies Use Recreational Drug Use: No Smoking Status: Never a Smoker 2nd Hand Smoke Exposure: No Recent Foreign Travel: No Contact w/Someone Who Travel: No Recent Infectious Disease Expo: No Recent Hopitalizations: No Physical Abuse Screen: No Sexual Abuse: No Immunizations Up To Date Tetanus Booster (TDap): Unknown PED Vaccines UTD: Yes Date of Influenza Vaccine: Jun 08, 2013 Seasonal Allergies Seasonal Allergies: Yes Surgeries HX Surgeries: Yes ( X 2 ; RIGHT OOPHORECTOMY) Surgeries: Appendectomy, Section, Gallbladder, Oophorectomy Respiratory Hx Respiratory Disorders: Yes (SEASONAL ASTHMA) Respiratory Disorders: Asthma Cardiovascular Hx Cardiac Disorders: No Neurological Hx Neurological Disorders: No Reproductive System : No Hx Reproductive Disorders: No Female Reproductive Disorders: Ovarian Cyst Genitourinary Hx Genitourinary Disorders: No Gastrointestinal Hx Gastrointestinal Disorders: No Musculoskeletal Hx Musculoskeletal Disorders: Yes Musculoskeletal Disorders: Arthritis, Chronic Back Pain Endocrine Hx Endocrine Disorders: No HEENT HX ENT Disorders: No ("sinus problems") Cancer Hx Cancer: No Psychosocial Hx Psychiatric Problems: No Integumentary HX Skin/Integumentary Disorder: No Blood Transfusions Hx Blood Disorders: No Adverse Reaction to a Blood Tr: No Family Medical History Significant Family History: DVT/PE, Diabetes, Hypertension Family Medial History: Asthma 19 MOTHER Cardiovascular disease 19 FATHER (heart problems) Cataracts G8 BROTHER (surgery x2 on eyes) Deafness or hearing loss G8 BROTHER (ear problems surgery on ears) Diabetes mellitus 19 FATHER Hypercholesterolemia 19 MOTHER Hypertension 19 FATHER 19 MOTHER Respiratory disorder G8 BROTHER (smokes) Review of Systems Constitutional: Malaise, Weakness, No: Chills, Fever, Other, Sweats Eyes: No: Conjunctivae inflammation, Eyelid inflammation, Other, Pain, Redness , Vision change ENT: No: Ear discharge, Ear pain, Mouth pain, Mouth swelling, Nose congestion, Nose discharge, Nose pain, Other, Throat pain, Throat swelling Respiratory: SOB with excertion, Shortness of breath, No: Cough Cardiovascular: Chest Pain, Lt Headedness, Orthopnea, Paroxysmal Noc. Dyspnea Gastrointestinal: No: Abdominal Pain, Constipation, Diarrhea, Hematochezia, Melena, Nausea, Other, Vomiting Genitourinary: No Dysuria, No Frequency, No Incontinence, No Hematuria, No Retention, No Other Musculoskeletal: No: arm pain, back pain, foot pain, hand pain, leg pain, neck pain, other, shoulder pain Skin: No: Bruising, Jaundice, Lesions, Other, Rash Exam Exam Vital Signs Date Time Temp Pulse Resp B/P (MAP) Pulse Ox O2 Delivery O2 Flow Rate FiO2 03/12/17 07:00 99 03/12/17 06:30 98 25 118/65 96 Room Air 03/12/17 06:00 92 15 116/67 96 Room Air 03/12/17 05:30 82 18 109/62 96 Room Air 03/12/17 05:00 83 19 113/68 97 Room Air 03/12/17 04:30 86 19 118/71 96 Room Air 03/12/17 04:00 98 Room Air 03/12/17 04:00 98.4 87 28 117/76 99 Room Air 03/12/17 03:30 86 23 120/77 97 Room Air 03/12/17 03:00 86 22 126/80 98 Room Air 03/12/17 02:30 82 26 131/76 92 Room Air 03/12/17 02:00 90 25 134/87 97 Room Air 03/12/17 01:56 97 Room Air 03/12/17 01:51 97 03/12/17 01:45 92 34 130/94 99 Room Air 03/12/17 01:34 96 03/12/17 01:30 97.9 91 30 125/80 98 Room Air 03/12/17 01:28 98 Room Air 03/12/17 01:25 98.9 89 20 96 Room Air 03/11/17 21:41 98.9 03/11/17 21:41 98.9 03/11/17 20:59 98.9 101 20 133/91 Room Air I & O 03/12/17 07:00 Intake Total 150 ml Output Total 0 ml Balance 150 ml General Appearance: No Apparent Distress, WD/WN, Other (DOES NOT APPEAR TO BE IN ANY DISCOMFORT. NO COUGH OR DYSPNEA AT ANY TIME DURING EXAM. MARKEDLY EXAGGERATED PAIN RESPONSE, AND PT MAKES A FIST AT ME DURING EXAM --WITH ME USING VERY LIGHT TOUCH WITH PALPATION AND WITH STETHOSCOPE. ) HEENT: PERRL/EOMI Neck: Full Range of Motion, Normal Inspection, Non Tender, Supple Respiratory: Normal Breath Sounds, No Accessory Muscle Use, No Respiratory Distress, Other (DIFFUSE CHEST WALL TENDERNESS) Cardiovascular: Regular Rate, Rhythm, No Edema, No JVD, No Murmur, Normal Peripheral Pulses Capillary Refill: Less Than 3 Seconds Gastrointestinal: normal bowel sounds, non tender, soft Extremity: Normal Capillary Refill, Normal Inspection, Normal Range of Motion, Non Tender, No Calf Tenderness, No Pedal Edema Neurologic/Psychiatric: Alert, Oriented x3, No Motor/Sensory Deficits, Normal 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 provoked - no prior episodes -Continue Lovenox for now then switch to Xarelto prior to discharge and treat for at least 6mo -Echocardiogram and bilateral dopplers pending -hypercoagulation panel is pending 254 Clinical Quality Measures DVT/VTE Risk/Contraindication: Risk Factor Score Per Nursin RFS Level Per Nursing on Admit: 3=High CAITLYN HANCOCK DO Mar 12, 2017 09:18
[2017-03-12] MEDS: LACTOBACILLUS Acidoph/Bulgar (LACTINEX/FLORANEX) TAB PO SCH ×3 (10:13→17:32)
[2017-03-12] MEDS: fentaNYL INJECTION 100 MCG/2 ML AMP IVP PRN ×5 (10:13→22:43)
--- NOTE | 2017-03-12 10:18 | Diagnostic Imaging Report ---
EXAMINATION: Bilateral lower extremity duplex venous ultrasound. TECHNIQUE: DVT protocol. Multiple sonographic images with color Doppler and waveform interrogation were performed of the lower extremity veins, bilaterally, with compression and augmentation maneuvers. INDICATION: Pulmonary embolism. FINDINGS: The lower extremity veins from the common femoral veins to below the knee veins were examined with normal color-flow, compressibility and normal waveform demonstrated. The great saphenous vein bilaterally is patent. IMPRESSION: No evidence of DVT in either lower extremity. Dictated by: Dictated on workstation # [id number]
[2017-03-12] MEDS ORDERED: CETI10TA20 PO (13:03)
[2017-03-12] MEDS ORDERED: MONT10TA24 PO (13:03)
[2017-03-12] MEDS ORDERED: [UNRECOGNIZED DRUG - CODE] PO (13:03)
[2017-03-12] MEDS ORDERED: VITA1CAP PO (13:03)
[2017-03-12] MEDS ORDERED: IBUP-30 PO (13:03)
[2017-03-12] MEDS ORDERED: LACT1CAP8 PO (13:03)
[2017-03-12] MEDS ORDERED: ACET1TAB19 PO (13:03)
[2017-03-12] MEDS ORDERED: NAPR220T66 PO (13:03)
[2017-03-12] MEDS ORDERED: BISM262O27 PO (13:03)
[2017-03-12] MEDS ORDERED: LEVO50TA6 PO (13:06)
[2017-03-12] MEDS ORDERED: FLUT16SP22 NS (13:38)
[2017-03-12] MEDS: ENOXAPARIN 100 MG/1 ML (LOVENOX) SYR SC SCH ×2 (15:40→23:08)
[2017-03-12] MEDS: PANTOPRAZOLE 40 MG (PROTONIX) TAB PO SCH (21:24)
[2017-03-13] VITALS (7 sets, daily range): BP systolic 115–125; BP diastolic 69–83
[2017-03-13] MEDS: cefTRIAXone INJECTION 1,000 MG in NS (IVPB) 50 ML IV SCH (02:28)
[2017-03-13] MEDS: ONDANSETRON 4 MG/2 ML (SDV) Z0FRAN IVP PRN ×2 (03:56→08:19)
[2017-03-13] MEDS: fentaNYL INJECTION 100 MCG/2 ML AMP IVP PRN ×3 (03:57→19:40)
[2017-03-13 04:13] LABS: BASOPHILS % (AUTO) 0 % (0-10); EOSINOPHILS # (AUTO) 0.5 10^3/uL (0.0-0.3); EOSINOPHILS % (AUTO) 5 % (0-10); LYMPHOCYTES # (AUTO) 2.2 X 10^3 (1.0-4.0); LYMPHOCYTES % (AUTO) 20 % (12-44); MEAN CORPUSCULAR HEMOGLOBIN 30 PG (25-34); MEAN CORPUSCULAR HGB CONC 33 G/DL (32-36); MEAN CORPUSCULAR VOLUME 92 FL (80-99); MEAN PLATELET VOLUME 10.2 FL (7.4-10.4); MONOCYTES # (AUTO) 1.1 X 10^3 (0.0-1.0); MONOCYTES % (AUTO) 10 % (0-12); NEUTROPHILS # (AUTO) 7.2 X 10^3 (1.8-7.8); NEUTROPHILS % (AUTO) 66 % (42-75); PLATELET COUNT 327 10^3/uL (130-400); RED BLOOD COUNT 3.65 10^6/uL (4.35-5.85); RED CELL DISTRIBUTION WIDTH 12.4 % (10.0-14.5); WHITE BLOOD COUNT 10.9 10^3/uL (4.3-11.0)
[2017-03-13 04:39] LABS: ANION GAP 9 MMOL/L (5-14); BLOOD UREA NITROGEN 11 MG/DL (7-18); BUN/CREATININE RATIO 13; CALCIUM 10.2 MG/DL (8.5-10.1); CARBON DIOXIDE 26 MMOL/L (21-32); CHLORIDE 104 MMOL/L (98-107); CREATININE SERUM 0.85 MG/DL (0.60-1.30); GFR ESTIMATED > 60; GLUCOSE 96 MG/DL (70-105); POTASSIUM 3.7 MMOL/L (3.6-5.0); SODIUM 139 MMOL/L (135-145)
[2017-03-13] MEDS: LACTOBACILLUS Acidoph/Bulgar (LACTINEX/FLORANEX) TAB PO SCH ×3 (06:20→15:44)
[2017-03-13 07:31] LABS: HOMOCYSTEINE 8.3 umol/L (<=10.3)
--- NOTE | 2017-03-13 07:43 | Pulmonary Progress Note ---
Subjective Time Seen by Provider: 07:42 Subjective/Events-last exam Pt feels improved. No complications noted. Exam Exam Vital Signs Date Time Temp Pulse Resp B/P (MAP) Pulse Ox O2 Delivery O2 Flow Rate FiO2 03/13/17 04:00 97 Nasal Cannula 2.00 03/13/17 04:00 97.5 99 Nasal Cannula 2.00 03/13/17 03:57 98.0 03/13/17 01:00 71 03/13/17 00:00 98.0 115/69 95 Room Air 03/13/17 00:00 97 Nasal Cannula 2.00 03/12/17 23:08 97.8 03/12/17 22:43 97.8 03/12/17 21:00 100 Nasal Cannula 2.00 03/12/17 20:00 97 Nasal Cannula 2.00 03/12/17 20:00 97.9 82 22 120/70 95 Room Air 03/12/17 19:23 99 Nasal Cannula 1.50 03/12/17 19:00 91 03/12/17 16:00 97.8 Room Air 03/12/17 16:00 87 26 122/78 95 Room Air 03/12/17 16:00 97 Room Air 2.00 03/12/17 14:41 97 Nasal Cannula 1.50 03/12/17 13:00 85 03/12/17 12:00 77 24 115/68 99 Room Air 03/12/17 12:00 98 Nasal Cannula 2.00 03/12/17 12:00 98.7 Room Air 03/12/17 09:00 97 Room Air 03/12/17 08:00 88 26 137/61 96 Room Air 03/12/17 08:00 97 Room Air 03/12/17 08:00 98.2 Room Air I & O 03/13/17 07:00 Intake Total 1100 ml Output Total 450 ml Balance 650 ml General Appearance: No Apparent Distress, WD/WN, Other (DOES NOT APPEAR TO BE IN ANY DISCOMFORT. NO COUGH OR DYSPNEA AT ANY TIME DURING EXAM. MARKEDLY EXAGGERATED PAIN RESPONSE, AND PT MAKES A FIST AT ME DURING EXAM --WITH ME USING VERY LIGHT TOUCH WITH PALPATION AND WITH STETHOSCOPE. ) HEENT: PERRL/EOMI Neck: Full Range of Motion, Normal Inspection, Non Tender, Supple Respiratory: Normal Breath Sounds, No Accessory Muscle Use, No Respiratory Distress, Other (DIFFUSE CHEST WALL TENDERNESS) Cardiovascular: Regular Rate, Rhythm, No Edema, No JVD, No Murmur, Normal Peripheral Pulses Capillary Refill: Less Than 3 Seconds Gastrointestinal: normal bowel sounds, non tender, soft Extremity: Normal Capillary Refill, Normal Inspection, Normal Range of Motion, Non Tender, No Calf Tenderness, No Pedal Edema Neurologic/Psychiatric: Alert, Oriented x3, No Motor/Sensory Deficits, Normal 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 provoked - no prior episodes -switch to Xarelto if ok with Dr. Hart and Dr. Dey -Echocardiogram and bilateral dopplers pending -hypercoagulation panel is pending CAP vs pulmonary infarction -continue Abx for now x 5-7 days. 233 transfer to 4th floor. Clinical Quality Measures DVT/VTE Risk/Contraindication: Risk Factor Score Per Nursin RFS Level Per Nursing on Admit: 3=High CAITLYN HANCOCK DO Mar 13, 2017 07:43
--- NOTE | 2017-03-13 09:26 | Progress Note (SOAP) ---
Subjective Date Seen by Provider: Mar 13, 2017 Time Seen by Provider: 09:00 Subjective/Events-last exam Reports that breathing is easier, needs less pain medications; Awaiting transfer to 4th floor. Objective Exam Vital Signs Date Time Temp Pulse Resp B/P (MAP) Pulse Ox O2 Delivery O2 Flow Rate FiO2 03/13/17 04:00 97 Nasal Cannula 2.00 03/13/17 04:00 97.5 99 Nasal Cannula 2.00 03/13/17 03:57 98.0 03/13/17 01:00 71 03/13/17 00:00 98.0 115/69 95 Room Air 03/13/17 00:00 97 Nasal Cannula 2.00 03/12/17 23:08 97.8 03/12/17 22:43 97.8 03/12/17 21:00 100 Nasal Cannula 2.00 03/12/17 20:00 97 Nasal Cannula 2.00 03/12/17 20:00 97.9 82 22 120/70 95 Room Air 03/12/17 19:23 99 Nasal Cannula 1.50 03/12/17 19:00 91 03/12/17 16:00 97.8 Room Air 03/12/17 16:00 87 26 122/78 95 Room Air 03/12/17 16:00 97 Room Air 2.00 03/12/17 14:41 97 Nasal Cannula 1.50 03/12/17 13:00 85 03/12/17 12:00 77 24 115/68 99 Room Air 03/12/17 12:00 98 Nasal Cannula 2.00 03/12/17 12:00 98.7 Room Air I & O 03/13/17 07:00 Intake Total 1100 ml Output Total 450 ml Balance 650 ml Capillary Refill : Less Than 3 Seconds General Appearance: No Apparent Distress, Obese HEENT: PERRL/EOMI Neck: Full Range of Motion, Non Tender, Supple Respiratory: Lungs Clear, Normal Breath Sounds, No Accessory Muscle Use Cardiovascular: Regular Rate, Rhythm, No Edema, No Gallop, No JVD Gastrointestinal: normal bowel sounds, non tender, soft Extremity: Normal Inspection, Non Tender, No Calf Tenderness, No Pedal Edema Neurologic/Psychiatric: Alert, Oriented x3, No Motor/Sensory Deficits, Normal 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5H, Basophils # (Auto) 0.0, Sodium Level 139, Potassium Level 3.7, Chloride Level 104, Carbon Dioxide Level 26, Anion Gap 9, Blood Urea Nitrogen 11, Creatinine 0.85, Estimat Glomerular Filtration Rate > 60, BUN/ Creatinine Ratio 13, Glucose Level 96, Calcium Level 10.2H Microbiology 03/11/17 Blood Culture - Preliminary, Resulted No growth Assessment/Plan Assessment/Plan Assess & Plan/Chief Complaint 1. Bilateral Pulmonary Emboli--agree with Lovenox then switch to Xarelto to complete 6 month course; Full hypercoagulability panel testing is recommended 2 weeks post completion of the 6 months of anticoagulation. a. Bilateral Doppler of lower extremity were negative for DVT b. Echocardiogram results pending. 2. Small Right Pleural Effusion and Infiltrate--Continue IV antibiotics 3. Positive Family History , Factor V Leiden, and Lupus anticoagulant testing results are pending; Other testing not currently appropriate in acute setting; 4. Obesity Clinical Quality Measures DVT/VTE Risk/Contraindication: Risk Factor Score Per Nursin RFS Level Per Nursing on Admit: 3=LULU Angulo MD Mar 13, 2017 09:26
[2017-03-13] MEDS: AZITHROMYCIN 250 MG TAB (ZITHROMAX) PO SCH (10:26)
[2017-03-13] MEDS: PANTOPRAZOLE 40 MG (PROTONIX) TAB PO SCH ×2 (10:26→20:59)
[2017-03-13] MEDS: ENOXAPARIN 100 MG/1 ML (LOVENOX) SYR SC SCH (11:36)
[2017-03-13 15:52] LABS: LUPUS ANTICOAGULANT PTT 37.3 Seconds (24.4-41.7)
[2017-03-13 15:56] LABS: DIL RUSSELL VIPER VENOM SCREEN 0.98 ratio (0.00-1.20)
--- NOTE | 2017-03-13 20:41 | Progress Note (SOAP) ---
Subjective Date Seen by Provider: Mar 13, 2017 Time Seen by Provider: 08:30 Subjective/Events-last exam Fwup bilateral pulmonary emboli and pneumonia vs pulmonary infarct. C/O upper chest pain radiating to shoulders--right greater then left. Objective Exam Vital Signs Date Time Temp Pulse Resp B/P (MAP) Pulse Ox O2 Delivery O2 Flow Rate FiO2 03/13/17 19:32 Nasal Cannula 0.50 03/13/17 19:30 98.6 92 20 119/77 95 Nasal Cannula 2.50 03/13/17 16:17 98.3 80 20 117/83 98 Nasal Cannula 2.50 03/13/17 13:35 99.3 85 20 125/79 97 Nasal Cannula 2.50 03/13/17 13:35 Nasal Cannula 2.50 03/13/17 12:00 99 Room Air 03/13/17 12:00 98.5 82 20 121/77 97 Nasal Cannula 2.00 03/13/17 09:33 99 Nasal Cannula 1.50 03/13/17 09:00 98 Room Air 03/13/17 08:00 98 Room Air 03/13/17 08:00 98.6 75 20 121/74 99 Nasal Cannula 2.00 03/13/17 07:00 63 03/13/17 04:00 97 Nasal Cannula 2.00 03/13/17 04:00 97.5 99 Nasal Cannula 2.00 03/13/17 03:57 98.0 03/13/17 01:00 71 03/13/17 00:00 98.0 115/69 95 Room Air 03/13/17 00:00 97 Nasal Cannula 2.00 03/12/17 23:08 97.8 03/12/17 22:43 97.8 03/12/17 21:00 100 Nasal Cannula 2.00 I & O 03/13/17 07:00 Intake Total 1100 ml Output Total 450 ml Balance 650 ml Capillary Refill : Less Than 3 Seconds General Appearance: No Apparent Distress Neck: Supple Respiratory: Lungs Clear Cardiovascular: Regular Rate, Rhythm Gastrointestinal: normal bowel sounds, non tender, soft Extremity: Non Tender, No Calf Tenderness, No Pedal Edema Neurologic/Psychiatric: Alert, Oriented x3 Results Lab Laboratory Tests 03/13/17 03:59: White Blood Count 10.9, Red Blood Count 3.65L, Hemoglobin 11.0L, Hematocrit 33L , Mean Corpuscular Volume 92, Mean Corpuscular Hemoglobin 30, Mean Corpuscular Hemoglobin Concent 33, Red Cell Distribution Width 12.4, Platelet Count 327, Mean Platelet Volume 10.2, Neutrophils (%) (Auto) 66, Lymphocytes (%) (Auto) 20 , Monocytes (%) (Auto) 10, Eosinophils (%) (Auto) 5, Basophils (%) (Auto) 0, Neutrophils # (Auto) 7.2, Lymphocytes # (Auto) 2.2, Monocytes # (Auto) 1.1H, Eosinophils # (Auto) 0.5H, Basophils # (Auto) 0.0, Sodium Level 139, Potassium Level 3.7, Chloride Level 104, Carbon Dioxide Level 26, Anion Gap 9, Blood Urea Nitrogen 11, Creatinine 0.85, Estimat Glomerular Filtration Rate > 60, BUN/ Creatinine Ratio 13, Glucose Level 96, Calcium Level 10.2H Microbiology 03/11/17 Blood Culture - Preliminary, Resulted No growth Assessment/Plan Assessment/Plan Assess & Plan/Chief Complaint 1. Bilateral pulmonary emboli--will switch lovenox to xarelto, transfer to floor, coagulation studies pending 2. Pneumonia vs pulmonary infarct--continue antibiotics Clinical Quality Measures DVT/VTE Risk/Contraindication: Risk Factor Score Per Nursin RFS Level Per Nursing on Admit: 3=High PER WALL DO Mar 13, 2017 8:41 pm
[2017-03-14] MEDS: ENOXAPARIN 100 MG/1 ML (LOVENOX) SYR SC SCH (00:21)
[2017-03-14] MEDS: cefTRIAXone INJECTION 1,000 MG in NS (IVPB) 50 ML IV SCH (02:27)
[2017-03-14] MEDS: fentaNYL INJECTION 100 MCG/2 ML AMP IVP PRN ×4 (03:26→12:32)
[2017-03-14] MEDS: ONDANSETRON 4 MG/2 ML (SDV) Z0FRAN IVP PRN ×5 (03:31→21:07)
[2017-03-14 03:50] VITALS: BP 111/62
[2017-03-14] MEDS: RIVAROXABAN 15 MG TABLET (XARELTO) PO SCH ×2 (06:50→16:48)
[2017-03-14] MEDS: LACTOBACILLUS Acidoph/Bulgar (LACTINEX/FLORANEX) TAB PO SCH ×3 (06:50→16:48)
--- NOTE | 2017-03-14 07:38 | Pulmonary Progress Note ---
Subjective Time Seen by Provider: 07:38 Subjective/Events-last exam pt feels improved. She c/o of nausea secondary to pain meds and SOB (improved) with exertion. Exam Exam Vital Signs Date Time Temp Pulse Resp B/P (MAP) Pulse Ox O2 Delivery O2 Flow Rate FiO2 03/14/17 06:52 92 Room Air 03/14/17 03:50 97.4 75 20 111/62 93 Nasal Cannula 2.50 03/13/17 23:45 98.4 79 20 119/71 95 Nasal Cannula 2.50 03/13/17 20:45 Nasal Cannula 2.50 03/13/17 19:32 Nasal Cannula 0.50 03/13/17 19:30 98.6 92 20 119/77 95 Nasal Cannula 2.50 03/13/17 16:17 98.3 80 20 117/83 98 Nasal Cannula 2.50 03/13/17 13:35 99.3 85 20 125/79 97 Nasal Cannula 2.50 03/13/17 13:35 Nasal Cannula 2.50 03/13/17 12:00 99 Room Air 03/13/17 12:00 98.5 82 20 121/77 97 Nasal Cannula 2.00 03/13/17 09:33 99 Nasal Cannula 1.50 03/13/17 09:00 98 Room Air 03/13/17 08:00 98 Room Air 03/13/17 08:00 98.6 75 20 121/74 99 Nasal Cannula 2.00 I & O 03/14/17 07:00 Intake Total 1032 ml Output Total 1300 ml Balance -268 ml General Appearance: No Apparent Distress HEENT: PERRL/EOMI Neck: Supple Respiratory: Lungs Clear Cardiovascular: Regular Rate, Rhythm Capillary Refill: Less Than 3 Seconds Gastrointestinal: normal bowel sounds, non tender, soft Extremity: Non Tender, No Calf Tenderness, No Pedal Edema Neurologic/Psychiatric: Alert, Oriented x3 Skin: Normal Color, Warm/Dry, No Rash, Other (SITES OF PREVIOUS SKIN LESION REMOVALS TO RIGHT LOWER LEG AND POSTERIOR NECK ARE ALL WELL-HEALED WITH NO SIGNS OF INFECTION--SCABS STILL IN PLACE ON LEG) Lymphatic: No Adenopathy Results Lab Laboratory Tests 03/13/17 03:59 Assessment/Plan Assessment/Plan Acute PE ? provoked - no prior episodes -dopplers neg for DVT -continue Xarelto -hypercoagulation panel is pending CAP vs pulmonary infarction -continue Abx for now x 5-7 days. 232 Clinical Quality Measures DVT/VTE Risk/Contraindication: Risk Factor Score Per Nursin RFS Level Per Nursing on Admit: 3=High CAITLYN HANCOCK DO Mar 14, 2017 07:38
[2017-03-14] MEDS: PANTOPRAZOLE 40 MG (PROTONIX) TAB PO SCH ×2 (07:52→21:07)
[2017-03-14] MEDS: AZITHROMYCIN 250 MG TAB (ZITHROMAX) PO SCH (07:52)
[2017-03-14 08:00] VITALS: BP 128/78
[2017-03-14 08:13] LABS: INR REF RML 1.1 (0.7-1.3); PT REF RML 14.5 SEC (10.5-15.7)
--- NOTE | 2017-03-14 08:58 | Progress Note (SOAP) ---
Subjective Date Seen by Provider: Mar 14, 2017 Time Seen by Provider: 09:00 Subjective/Events-last exam Breathing easier and feeling better today. She has been switched to oral antibiotics and oral anticoagulant, Xarelto. Discharge planning is in progress. Objective Exam Vital Signs Date Time Temp Pulse Resp B/P (MAP) Pulse Ox O2 Delivery O2 Flow Rate FiO2 03/14/17 08:00 97.5 77 20 128/78 94 Room Air 03/14/17 06:52 92 Room Air 03/14/17 03:50 97.4 75 20 111/62 93 Nasal Cannula 2.50 03/13/17 23:45 98.4 79 20 119/71 95 Nasal Cannula 2.50 03/13/17 20:45 Nasal Cannula 2.50 03/13/17 19:32 Nasal Cannula 0.50 03/13/17 19:30 98.6 92 20 119/77 95 Nasal Cannula 2.50 03/13/17 16:17 98.3 80 20 117/83 98 Nasal Cannula 2.50 03/13/17 13:35 99.3 85 20 125/79 97 Nasal Cannula 2.50 03/13/17 13:35 Nasal Cannula 2.50 03/13/17 12:00 99 Room Air 03/13/17 12:00 98.5 82 20 121/77 97 Nasal Cannula 2.00 03/13/17 09:33 99 Nasal Cannula 1.50 03/13/17 09:00 98 Room Air I & O 03/14/17 07:00 Intake Total 1032 ml Output Total 1300 ml Balance -268 ml Capillary Refill : Less Than 3 Seconds General Appearance: No Apparent Distress HEENT: PERRL/EOMI Neck: Full Range of Motion, Normal Inspection, Non Tender, Supple Respiratory: Lungs Clear, Normal Breath Sounds, No Accessory Muscle Use Cardiovascular: Regular Rate, Rhythm, No Edema, No Gallop, No JVD Gastrointestinal: normal bowel sounds, non tender, soft Extremity: Non Tender, No Calf Tenderness Results Lab Microbiology 03/11/17 Blood Culture - Preliminary, Resulted No growth Laboratory Tests 03/13/17 03:59 Assessment/Plan Assessment/Plan Assess & Plan/Chief Complaint 1. Bilateral Pulmonary Emboli--agree with Lovenox then switch to Xarelto to complete 6 month course; Full hypercoagulability panel testing is recommended 2 weeks post completion of the 6 months of anticoagulation. a. Bilateral Doppler of lower extremity were negative for DVT b. Echocardiogram results pending. 2. Small Right Pleural Effusion and Infiltrate--Continue IV antibiotics 3. Positive Family History , Factor V Leiden, and Lupus anticoagulant testing results are pending; Other testing not currently appropriate in acute setting; 4. Obesity 5. Give 1-2 week followup appointment with Hematology post discharge; Clinical Quality Measures DVT/VTE Risk/Contraindication: Risk Factor Score Per Nursin RFS Level Per Nursing on Admit: 3=High LULU DILLON MD Mar 14, 2017 08:58
[2017-03-14] MEDS ORDERED: RIVA20TA PO (10:50)
[2017-03-14] MEDS ORDERED: RIVA15TA PO (10:50)
[2017-03-14 12:00] VITALS: BP 115/68
[2017-03-14 12:08] LABS: FACTOR 5 (LEIDEN) MUTATION Negative (Negative)
--- NOTE | 2017-03-14 13:34 | Progress Note (SOAP) ---
Subjective Date Seen by Provider: Mar 14, 2017 Time Seen by Provider: 13:32 Subjective/Events-last exam Fwup bilateral pulmonary emboli and pneumonia vs pulmonary infarct. C/O cough and still with right shoulder/upper back and neck pain. Objective Exam Vital Signs Date Time Temp Pulse Resp B/P (MAP) Pulse Ox O2 Delivery O2 Flow Rate FiO2 03/14/17 08:00 97.5 77 20 128/78 94 Room Air 03/14/17 06:52 92 Room Air 03/14/17 03:50 97.4 75 20 111/62 93 Nasal Cannula 2.50 03/13/17 23:45 98.4 79 20 119/71 95 Nasal Cannula 2.50 03/13/17 20:45 Nasal Cannula 2.50 03/13/17 19:32 Nasal Cannula 0.50 03/13/17 19:30 98.6 92 20 119/77 95 Nasal Cannula 2.50 03/13/17 16:17 98.3 80 20 117/83 98 Nasal Cannula 2.50 03/13/17 13:35 99.3 85 20 125/79 97 Nasal Cannula 2.50 03/13/17 13:35 Nasal Cannula 2.50 I & O 03/14/17 07:00 Intake Total 1032 ml Output Total 1300 ml Balance -268 ml Capillary Refill : Less Than 3 Seconds General Appearance: No Apparent Distress Neck: Supple Respiratory: Lungs Clear Cardiovascular: Regular Rate, Rhythm Gastrointestinal: normal bowel sounds, non tender, soft Extremity: Non Tender, No Calf Tenderness, No Pedal Edema Neurologic/Psychiatric: Alert, Oriented x3 Results Lab Microbiology 03/11/17 Blood Culture - Preliminary, Resulted No growth Assessment/Plan Assessment/Plan Assess & Plan/Chief Complaint 1. Bilateral pulmonary emboli--switched to xarelto, switch to oral pain meds 2. Pneumonia vs pulmonary infarct--continue antibiotics, WBC count decreasing Clinical Quality Measures DVT/VTE Risk/Contraindication: Risk Factor Score Per Nursin RFS Level Per Nursing on Admit: 3=High PER WALL DO Mar 14, 2017 1:34 pm
[2017-03-14 16:40] LABS: FACTOR 5 LEIDEN INTERP See Footnote
[2017-03-14] MEDS: HYDROcodone/APAP 5 MG/325 MG (LORTAB) TAB PO PRN (16:48)
[2017-03-14 17:00] VITALS: BP 130/71
[2017-03-14 20:45] VITALS: BP 122/78
[2017-03-14 21:09] VITALS: BP 122/78
[2017-03-15] VITALS: BP 121/69
[2017-03-15] MEDS: HYDROcodone/APAP 5 MG/325 MG (LORTAB) TAB PO PRN ×2 (00:35→06:32)
[2017-03-15] MEDS: ONDANSETRON 4 MG/2 ML (SDV) Z0FRAN IVP PRN ×3 (01:00→11:30)
[2017-03-15] MEDS: cefTRIAXone INJECTION 1,000 MG in NS (IVPB) 50 ML IV SCH (02:04)
[2017-03-15] MEDS: LACTOBACILLUS Acidoph/Bulgar (LACTINEX/FLORANEX) TAB PO SCH ×2 (06:28→11:29)
[2017-03-15] MEDS: RIVAROXABAN 15 MG TABLET (XARELTO) PO SCH (06:28)
[2017-03-15 08:30] VITALS: BP 112/68
--- NOTE | 2017-03-15 09:06 | Progress Note (SOAP) ---
Subjective Subjective/Events-last exam Fwup bilateral pulmonary emboli and pneumonia vs pulmonary infarct. Objective Exam Vital Signs Date Time Temp Pulse Resp B/P (MAP) Pulse Ox O2 Delivery O2 Flow Rate FiO2 03/15/17 00:00 97.0 77 20 121/69 96 Room Air 03/14/17 20:45 98.2 81 20 122/78 93 Room Air 03/14/17 19:55 Room Air 03/14/17 17:00 98.5 76 20 130/71 94 Room Air 03/14/17 12:00 98.2 68 20 115/68 96 Room Air I & O 03/15/17 07:00 Intake Total 2650 ml Output Total 1950 ml Balance 700 ml Capillary Refill : Less Than 3 Seconds Results Lab Microbiology 03/11/17 Blood Culture - Preliminary, Resulted No growth Assessment/Plan Assessment/Plan Assess & Plan/Chief Complaint 1. Bilateral pulmonary emboli--switched to xarelto, switch to oral pain meds 2. Pneumonia vs pulmonary infarct--continue antibiotics, WBC count decreasing Clinical Quality Measures DVT/VTE Risk/Contraindication: Risk Factor Score Per Nursin RFS Level Per Nursing on Admit: 3=High PER WALL DO Mar 15, 2017 09:06
[2017-03-15] MEDS: PANTOPRAZOLE 40 MG (PROTONIX) TAB PO SCH (09:34)
[2017-03-15] MEDS: AZITHROMYCIN 250 MG TAB (ZITHROMAX) PO SCH (09:34)
--- NOTE | 2017-03-15 09:35 | Progress Note (SOAP) ---
Subjective Date Seen by Provider: Mar 15, 2017 Time Seen by Provider: 11:45 Subjective/Events-last exam Fwup bilateral pulmonary emboli and pneumonia vs pulmonary infarct. C/O nausea- -thinks related to abx and hydrocodone. Objective Exam Vital Signs Date Time Temp Pulse Resp B/P (MAP) Pulse Ox O2 Delivery O2 Flow Rate FiO2 03/15/17 00:00 97.0 77 20 121/69 96 Room Air 03/14/17 20:45 98.2 81 20 122/78 93 Room Air 03/14/17 19:55 Room Air 03/14/17 17:00 98.5 76 20 130/71 94 Room Air 03/14/17 12:00 98.2 68 20 115/68 96 Room Air I & O 03/15/17 07:00 Intake Total 2650 ml Output Total 1950 ml Balance 700 ml Capillary Refill : Less Than 3 Seconds General Appearance: No Apparent Distress Neck: Supple Respiratory: Lungs Clear, Decreased Breath Sounds (bases) Cardiovascular: Regular Rate, Rhythm Extremity: Non Tender, No Calf Tenderness, No Pedal Edema Neurologic/Psychiatric: Alert, Oriented x3 Results Lab Microbiology 03/11/17 Blood Culture - Preliminary, Resulted No growth Assessment/Plan Assessment/Plan Assess & Plan/Chief Complaint 1. Bilateral pulmonary emboli--DC home on xarelto and hydrocodone 2. Pneumonia vs pulmonary infarct--DC home on zithromax and omnicef Clinical Quality Measures DVT/VTE Risk/Contraindication: Risk Factor Score Per Nursin RFS Level Per Nursing on Admit: 3=High PER WALL DO Mar 15, 2017 09:35
[2017-03-15] MEDS ORDERED: AZIT250T5 PO (11:39)
[2017-03-15] MEDS ORDERED: ONDN4T PO (11:39)
[2017-03-15] MEDS ORDERED: CEFD300C3 PO (11:39)
[2017-03-15] MEDS ORDERED: HYDR-3812 PO (11:39)
--- NOTE | 2017-03-15 11:41 | Discharge Inst-Simple/Standard ---
Discharge Inst-Standard Discharge Medications New, Converted or Re-Newed RX: Transmitted to Pharmacy Patient Instructions/Follow Up Plan of Care/Instructions/FU: Fwup 3-5 days Activity as Tolerated: Yes Discharge Diet: No Restrictions PER WALL DO Mar 15, 2017 11:41 am
[2017-03-17 07:42] LABS: FACTOR II 20210 MUTATION INT SEE FOOTNOTE
[2017-03-17 15:49] LABS: FACTOR 8 (VIII) ASSAY C 127 % (60-150)
[2017-03-18 08:34] LABS: ANTITHROMBIN 3 ANTIGEN 117 % (80-120)
== END 2017-03-15 14:23 | disposition home or self-care (01) | DRG 175 ==
LOC: EDUNIT# 20:53 → ER 20:54 → ICU 23:45 → 4TH 03-13 13:38
PROVIDERS: ADMIT Family Medicine; ATTEND Family Medicine
DX: I26.99 Other pulmonary embolism without acute cor pulmonale (principal); J18.9 Pneumonia, unspecified organism; E66.9 Obesity, unspecified; Z68.32 Body mass index [BMI] 32.0-32.9, adult
CPT/HCPCS: 36415; 71010; 71275; 76937; 80048; 80053; 81240; 81241; 82150; 82550; 82553; 83090; 83605; 83690; 83735; 83880; 84484; 84703; 85025; 85240; 85300; 85306; 85307; 85610; 85613; 85705; 85730; 86038; 86146; 86147; 87040; 93005; 93041; 93306; 93970; 94664; 94760; 96365; 96372; 96375

== ENCOUNTER 2017-03-27 10:11 | Outpatient (RCR) | payer BC ==
[~2017-03-27 10:11] MED LIST changes: +ACET1TAB19 PO; +AZIT250T12 PO; +BISM262O27 PO; +CEFD300C3 PO; +CETI10TA20 PO; +FLUT16SP22 NS; +HYDR-3812 PO; +IBUP-30 PO; +LACT1CAP8 PO; +LEVO50TA6 PO; +MONT10TA24 PO; +NAPR220T66 PO; +ONDN4T PO; +RIVA15TA PO; +RIVA20TA PO; +VITA1CAP PO; +[UNRECOGNIZED DRUG - CODE] PO
[2017-03-27 10:55] LABS: BASOPHILS % (AUTO) 1 % (0-10); EOSINOPHILS # (AUTO) 0.4 10^3/uL (0.0-0.3); EOSINOPHILS % (AUTO) 7 % (0-10); LYMPHOCYTES # (AUTO) 1.9 X 10^3 (1.0-4.0); LYMPHOCYTES % (AUTO) 31 % (12-44); MEAN CORPUSCULAR HEMOGLOBIN 30 PG (25-34); MEAN CORPUSCULAR HGB CONC 33 G/DL (32-36); MEAN CORPUSCULAR VOLUME 92 FL (80-99); MEAN PLATELET VOLUME 10.5 FL (7.4-10.4); MONOCYTES # (AUTO) 0.5 X 10^3 (0.0-1.0); MONOCYTES % (AUTO) 9 % (0-12); NEUTROPHILS # (AUTO) 3.3 X 10^3 (1.8-7.8); NEUTROPHILS % (AUTO) 53 % (42-75); PLATELET COUNT 295 10^3/uL (130-400); RED BLOOD COUNT 4.21 10^6/uL (4.35-5.85); RED CELL DISTRIBUTION WIDTH 13.5 % (10.0-14.5); WHITE BLOOD COUNT 6.3 10^3/uL (4.3-11.0)
[2017-03-27 11:24] LABS: ALANINE AMINOTRANSFERASE 13 U/L (0-55); ALBUMIN 3.8 GM/DL (3.2-4.5); ANION GAP 7 MMOL/L (5-14); ASPARTATE AMINO TRANSFERASE 8 U/L (5-34); BILIRUBIN,TOTAL 0.3 MG/DL (0.1-1.0); BLOOD UREA NITROGEN 12 MG/DL (7-18); BUN/CREATININE RATIO 13; CALCIUM 8.9 MG/DL (8.5-10.1); CARBON DIOXIDE 25 MMOL/L (21-32); CHLORIDE 107 MMOL/L (98-107); CREATININE SERUM 0.94 MG/DL (0.60-1.30); GFR ESTIMATED > 60; GLUCOSE 104 MG/DL (70-105); POTASSIUM 3.9 MMOL/L (3.6-5.0); SODIUM 139 MMOL/L (135-145); TOTAL PROTEIN 7.2 GM/DL (6.4-8.2)
[2017-03-27 11:48] LABS: ERYTHROCYTE SEDIMENTATION RATE 17 MM/HR (0-20)
== END 2017-04-10 13:28 | disposition home or self-care (01) ==
LOC: ONC 10:11
PROVIDERS: ATTEND Internal Medicine Hematology & Oncology
DX: I26.99 Other pulmonary embolism without acute cor pulmonale (principal); D68.8 Other specified coagulation defects; E03.9 Hypothyroidism, unspecified; R16.1 Splenomegaly, not elsewhere classified; E66.9 Obesity, unspecified; Z68.31 Body mass index [BMI] 31.0-31.9, adult; Z83.2 Family history of diseases of the blood and blood-forming organs and certain disorders involving the immune mechanism; Z79.01 Long term (current) use of anticoagulants; Z79.899 Other long term (current) drug therapy
CPT/HCPCS: 36415; 80053; 81270; 85025; 85652; 99213

== ENCOUNTER → 2017-04-03 | Outpatient (CLI) | payer BC ==
[~2017-04-03] MED LIST changes: -AZIT250T12 PO; +AZIT250T5 PO; +BARIUM SUSPENSION 2.1% (VANILLA SILQ) 450 ML PO ONE; +CATHETER FLUSH 10 ML SYR IV PRN; +IOHEXOL 350 MG/ML 100 ML (OMNIPAQUE 350) VIAL IV ONE; +NS 100 ML (IVPB) BAG IV ONE
--- NOTE | 2017-04-03 17:29 | Diagnostic Imaging Report ---
PROCEDURE: CT abdomen and pelvis with and without contrast. TECHNIQUE: Precontrast acquisitions were acquired through the abdomen and pelvis. Multiple contiguous axial images were obtained through the abdomen and pelvis after the administration of intravenous contrast. INDICATION: Right-sided abdominal pain. Enlarged spleen. FINDINGS: The lung bases demonstrate a mass-like oval area of consolidation in the posterior inferior aspect of the right lower lobe measuring 3.2 x 1.6 cm. There is adjacent pleural thickening and this could be a combination of pneumonitis or atelectasis and small consolidation rather than neoplastic mass. On prior studies this area demonstrated a larger consolidation and atelectasis and exact comparison with the previous exam is difficult. Follow-up study to ensure resolution is recommended. The liver, the spleen, and the pancreas appear unremarkable. The left adrenal gland is not well from the adjacent structures with no definite mass in the left suprarenal region. The right adrenal gland appears unremarkable. The kidneys have symmetric enhancement and contrast excretion. There is no hydronephrosis. The unenhanced phase demonstrates no urinary tract stones. The uterus and adnexa appear grossly unremarkable. There is no bowel obstruction. No significant free fluid or fluid collection in the abdomen or pelvis seen. There is a fat-containing umbilical hernia. Also diastasis of the recti around the umbilicus level is seen. Abdominal aorta is normal in caliber. No para-aortic significantly enlarged lymph node is noted. The osseous structures demonstrate mild degenerative changes of the SI joints. IMPRESSION: 1. A 3.2 cm mass-like area of consolidation in the posterior inferior aspect of the right lower lobe of the lung. This is favored to be pneumonitis or atelectasis rather than neoplastic. Follow-up CT chest in two months is recommended to ensure resolution. 2. Diastasis of the recti and small fat-containing umbilical hernia is seen. Dictated by: Dictated on workstation # [id number]
== END ==
LOC: RAD 14:36
PROVIDERS: ATTEND Internal Medicine Hematology & Oncology
DX: R16.1 Splenomegaly, not elsewhere classified (principal); R91.8 Other nonspecific abnormal finding of lung field; K42.9 Umbilical hernia without obstruction or gangrene
CPT/HCPCS: 74178

== ENCOUNTER 2017-04-14 13:14 | Outpatient (RCR) | payer BC ==
[~2017-04-14 13:14] MED LIST changes: -BARIUM SUSPENSION 2.1% (VANILLA SILQ) 450 ML PO ONE; -CATHETER FLUSH 10 ML SYR IV PRN; -IOHEXOL 350 MG/ML 100 ML (OMNIPAQUE 350) VIAL IV ONE; -NS 100 ML (IVPB) BAG IV ONE
[2017-04-14 13:38] LABS: BASOPHILS % (AUTO) 1 % (0-10); EOSINOPHILS # (AUTO) 0.2 10^3/uL (0.0-0.3); EOSINOPHILS % (AUTO) 2 % (0-10); LYMPHOCYTES # (AUTO) 1.6 X 10^3 (1.0-4.0); LYMPHOCYTES % (AUTO) 22 % (12-44); MEAN CORPUSCULAR HEMOGLOBIN 30 PG (25-34); MEAN CORPUSCULAR HGB CONC 33 G/DL (32-36); MEAN CORPUSCULAR VOLUME 92 FL (80-99); MEAN PLATELET VOLUME 10.3 FL (7.4-10.4); MONOCYTES # (AUTO) 0.8 X 10^3 (0.0-1.0); MONOCYTES % (AUTO) 11 % (0-12); NEUTROPHILS # (AUTO) 4.6 X 10^3 (1.8-7.8); NEUTROPHILS % (AUTO) 64 % (42-75); PLATELET COUNT 252 10^3/uL (130-400); RED BLOOD COUNT 4.29 10^6/uL (4.35-5.85); RED CELL DISTRIBUTION WIDTH 13.8 % (10.0-14.5); WHITE BLOOD COUNT 7.2 10^3/uL (4.3-11.0)
[2017-04-14 14:13] LABS: ALANINE AMINOTRANSFERASE 24 U/L (0-55); ALBUMIN 4.1 GM/DL (3.2-4.5); ANION GAP 10 MMOL/L (5-14); ASPARTATE AMINO TRANSFERASE 17 U/L (5-34); BILIRUBIN,TOTAL 0.6 MG/DL (0.1-1.0); BLOOD UREA NITROGEN 18 MG/DL (7-18); BUN/CREATININE RATIO 19; CALCIUM 9.4 MG/DL (8.5-10.1); CARBON DIOXIDE 27 MMOL/L (21-32); CHLORIDE 103 MMOL/L (98-107); CREATININE SERUM 0.97 MG/DL (0.60-1.30); GFR ESTIMATED > 60; GLUCOSE 95 MG/DL (70-105); SODIUM 140 MMOL/L (135-145); TOTAL PROTEIN 7.4 GM/DL (6.4-8.2)
[2017-04-14 14:18] LABS: ERYTHROCYTE SEDIMENTATION RATE 11 MM/HR (0-20)
== END 2017-06-07 | disposition home or self-care (01) ==
LOC: ONC 13:14
PROVIDERS: ATTEND Internal Medicine Hematology & Oncology
DX: I26.99 Other pulmonary embolism without acute cor pulmonale (principal); D68.8 Other specified coagulation defects; E03.9 Hypothyroidism, unspecified; R16.1 Splenomegaly, not elsewhere classified; E66.9 Obesity, unspecified; Z68.31 Body mass index [BMI] 31.0-31.9, adult; Z83.2 Family history of diseases of the blood and blood-forming organs and certain disorders involving the immune mechanism; Z79.01 Long term (current) use of anticoagulants; Z79.899 Other long term (current) drug therapy
CPT/HCPCS: 36415; 80053; 85025; 85652; 99213

== ENCOUNTER → 2017-06-17 | Outpatient (CLI) | payer BC ==
[~2017-06-17] MED LIST changes: +IOHEXOL 350 MG/ML 100 ML (OMNIPAQUE 350) VIAL IV ONE; +NS 100 ML (IVPB) BAG IV ONE
--- NOTE | 2017-06-17 17:56 | Diagnostic Imaging Report ---
PROCEDURE: CT chest with contrast only. TECHNIQUE: Multiple contiguous axial images were obtained through the chest after administration of intravenous contrast. INDICATION: Bilateral pulmonary embolism. 100 mL of Omnipaque 350 is administered intravenously. COMPARISON: 03/11/2017. FINDINGS: This is not a CTA angiography protocol exam. However, the pulmonary arteries are well opacified with the previously seen relatively large burden of pulmonary embolism noted on the prior exam of 03/11/2017 not appreciated suggestive of significant improvement and probable complete resolution. The thoracic aorta is normal in caliber. No dissection or aneurysm. No mediastinal mass. No significantly enlarged lymph nodes are seen in the mediastinum, ary or in the axilla. The heart size is at the upper limits of normal. No pericardial effusion. There is no significant pleural effusion. There is pleural-based density in the right lower hemithorax which may relate to a tiny pleural effusion and pleural thickening with minimal component of atelectasis in the adjacent right lung base. No significant consolidation, mass or suspicious nodule is seen. The upper abdomen sections demonstrate cholecystectomy clips. The osseous structures appear grossly unremarkable. IMPRESSION: 1. Significant improvement in the previously seen pulmonary embolism with no definite remaining filling defect in the central pulmonary arteries seen. 2. Minimal pleural effusion on the right side and pleural thickening is suggested in the posterior lower aspect of the right hemithorax. Dictated by: Dictated on workstation # [id number]
== END ==
LOC: RAD 14:36
PROVIDERS: ATTEND Internal Medicine Hematology & Oncology
DX: I26.99 Other pulmonary embolism without acute cor pulmonale (principal)
CPT/HCPCS: 71260

== ENCOUNTER 2017-06-18 14:15 | Outpatient (RCR) | payer BC ==
[~2017-06-18 14:15] MED LIST changes: +ACHD5005 PO; +AZIT250T12 PO; -AZIT250T5 PO; -HYDR-3812 PO; -IOHEXOL 350 MG/ML 100 ML (OMNIPAQUE 350) VIAL IV ONE; -NS 100 ML (IVPB) BAG IV ONE
[2017-06-18 14:27] LABS: BASOPHILS % (AUTO) 0 % (0-10); EOSINOPHILS # (AUTO) 0.2 10^3/uL (0.0-0.3); EOSINOPHILS % (AUTO) 3 % (0-10); HEMATOCRIT 39 % (35-52); LYMPHOCYTES # (AUTO) 2.2 X 10^3 (1.0-4.0); LYMPHOCYTES % (AUTO) 33 % (12-44); MEAN CORPUSCULAR HEMOGLOBIN 30 PG (25-34); MEAN CORPUSCULAR HGB CONC 34 G/DL (32-36); MEAN CORPUSCULAR VOLUME 91 FL (80-99); MEAN PLATELET VOLUME 10.7 FL (7.4-10.4); MONOCYTES # (AUTO) 0.8 X 10^3 (0.0-1.0); MONOCYTES % (AUTO) 12 % (0-12); NEUTROPHILS # (AUTO) 3.5 X 10^3 (1.8-7.8); NEUTROPHILS % (AUTO) 52 % (42-75); PLATELET COUNT 239 10^3/uL (130-400); RED BLOOD COUNT 4.27 10^6/uL (4.35-5.85); RED CELL DISTRIBUTION WIDTH 13.1 % (10.0-14.5); WHITE BLOOD COUNT 6.8 10^3/uL (4.3-11.0)
== END 2017-09-16 | disposition home or self-care (01) ==
LOC: ONC 14:15
PROVIDERS: ATTEND Internal Medicine Hematology & Oncology
DX: I26.99 Other pulmonary embolism without acute cor pulmonale (principal); D68.8 Other specified coagulation defects; E03.9 Hypothyroidism, unspecified; R16.1 Splenomegaly, not elsewhere classified; E66.9 Obesity, unspecified; Z68.31 Body mass index [BMI] 31.0-31.9, adult; Z83.2 Family history of diseases of the blood and blood-forming organs and certain disorders involving the immune mechanism; Z79.01 Long term (current) use of anticoagulants; Z79.899 Other long term (current) drug therapy
CPT/HCPCS: 36415; 85025; 99213

== ENCOUNTER 2017-10-23 08:28 | Outpatient (RCR) | payer BC ==
[~2017-10-23 08:28] MED LIST changes: -RANI150T15 PO; +RANI150T46 PO
[2017-10-23 08:46] LABS: BASOPHILS % (AUTO) 1 % (0-10); EOSINOPHILS # (AUTO) 0.1 10^3/uL (0.0-0.3); EOSINOPHILS % (AUTO) 1 % (0-10); HEMATOCRIT 42 % (35-52); HEMOGLOBIN 14.1 G/DL (11.5-16.0); LYMPHOCYTES # (AUTO) 1.7 X 10^3 (1.0-4.0); LYMPHOCYTES % (AUTO) 40 % (12-44); MEAN CORPUSCULAR HEMOGLOBIN 30 PG (25-34); MEAN CORPUSCULAR HGB CONC 34 G/DL (32-36); MEAN CORPUSCULAR VOLUME 90 FL (80-99); MEAN PLATELET VOLUME 10.7 FL (7.4-10.4); MONOCYTES # (AUTO) 0.5 X 10^3 (0.0-1.0); MONOCYTES % (AUTO) 11 % (0-12); NEUTROPHILS # (AUTO) 1.9 X 10^3 (1.8-7.8); NEUTROPHILS % (AUTO) 46 % (42-75); PLATELET COUNT 240 10^3/uL (130-400); RED BLOOD COUNT 4.67 10^6/uL (4.35-5.85); RED CELL DISTRIBUTION WIDTH 14.8 % (10.0-14.5); WHITE BLOOD COUNT 4.2 10^3/uL (4.3-11.0)
[2017-10-23 09:06] LABS: ALANINE AMINOTRANSFERASE 39 U/L (0-55); ALBUMIN 4.5 GM/DL (3.2-4.5); ALKALINE PHOSPHATASE 85 U/L (40-136); BILIRUBIN,TOTAL 0.8 MG/DL (0.1-1.0); BUN/CREATININE RATIO 11; CALCIUM 9.3 MG/DL (8.5-10.1); CARBON DIOXIDE 24 MMOL/L (21-32); CHLORIDE 106 MMOL/L (98-107); CREATININE SERUM 0.93 MG/DL (0.60-1.30); GFR ESTIMATED > 60; GLUCOSE 86 MG/DL (70-105); SODIUM 142 MMOL/L (135-145); TOTAL PROTEIN 8.1 GM/DL (6.4-8.2)
[2018-02-26] MEDS ORDERED: ASPI-983 PO (08:41)
[2018-02-26] MEDS ORDERED: RANI150T46 PO (08:41)
== END 2018-01-21 | disposition home or self-care (01) ==
LOC: ONC 08:28
PROVIDERS: ATTEND Internal Medicine Hematology & Oncology
DX: D68.8 Other specified coagulation defects (principal); Z86.711 Personal history of pulmonary embolism; E03.9 Hypothyroidism, unspecified; R16.1 Splenomegaly, not elsewhere classified; E66.9 Obesity, unspecified; Z68.31 Body mass index [BMI] 31.0-31.9, adult; Z83.2 Family history of diseases of the blood and blood-forming organs and certain disorders involving the immune mechanism; Z79.899 Other long term (current) drug therapy
CPT/HCPCS: 36415; 80053; 85025; 99213

== ENCOUNTER 2018-02-25 18:18 | Observation (INO) | payer BC ==
[~2018-02-25] VITALS: Ht 180.3 cm; Wt 99.8 kg
[2018-02-25 18:40] LABS: BASOPHILS % (AUTO) 0 % (0-10); EOSINOPHILS # (AUTO) 0.1 10^3/uL (0.0-0.3); EOSINOPHILS % (AUTO) 1 % (0-10); HEMATOCRIT 39 % (35-52); HEMOGLOBIN 13.6 G/DL (11.5-16.0); LYMPHOCYTES # (AUTO) 1.9 X 10^3 (1.0-4.0); LYMPHOCYTES % (AUTO) 25 % (12-44); MEAN CORPUSCULAR HEMOGLOBIN 32 PG (25-34); MEAN CORPUSCULAR HGB CONC 35 G/DL (32-36); MEAN CORPUSCULAR VOLUME 91 FL (80-99); MEAN PLATELET VOLUME 11.2 FL (7.4-10.4); MONOCYTES # (AUTO) 0.9 X 10^3 (0.0-1.0); MONOCYTES % (AUTO) 12 % (0-12); NEUTROPHILS # (AUTO) 4.5 X 10^3 (1.8-7.8); NEUTROPHILS % (AUTO) 61 % (42-75); PLATELET COUNT 241 10^3/uL (130-400); RED BLOOD COUNT 4.31 10^6/uL (4.35-5.85); RED CELL DISTRIBUTION WIDTH 13.7 % (10.0-14.5); WHITE BLOOD COUNT 7.4 10^3/uL (4.3-11.0)
[2018-02-25] MEDS ORDERED: ASPIRIN 81 MG CHEW (CHILDREN'S ASA) PO ONE (18:45)
[2018-02-25 18:56] LABS: PROTHROMBIN TIME PATIENT 13.2 SEC (12.2-14.7)
--- NOTE | 2018-02-25 18:58 | Diagnostic Imaging Report ---
INDICATION: Chest pain. Portable upright AP view of the chest is obtained with comparison made to study of 03/11/2017. FINDINGS: Heart size and pulmonary vascularity are within normal limits, and the lungs are clear, bilaterally. IMPRESSION: Unremarkable chest. Dictated by: Dictated on workstation # [id number]
[2018-02-25] MEDS ORDERED: IOHEXOL 350 MG/ML 150 ML (OMNIPAQUE 350) VIAL IV ONE (19:00)
[2018-02-25] MEDS ORDERED: NS 100 ML (IVPB) BAG IV ONE (19:00)
[2018-02-25 19:02] LABS: ALANINE AMINOTRANSFERASE 11 U/L (0-55); ALBUMIN 4.5 GM/DL (3.2-4.5); ALKALINE PHOSPHATASE 43 U/L (40-136); AMYLASE 28 U/L (25-125); BILIRUBIN,TOTAL 0.5 MG/DL (0.1-1.0); BUN/CREATININE RATIO 11; CALCIUM 9.6 MG/DL (8.5-10.1); CARBON DIOXIDE 21 MMOL/L (21-32); CHLORIDE 109 MMOL/L (98-107); CREATINE KINASE 60 U/L (29-168); CREATININE SERUM 0.92 MG/DL (0.60-1.30); GFR ESTIMATED > 60; GLUCOSE 87 MG/DL (70-105); LIPASE 29 U/L (8-78); MAGNESIUM 2.3 MG/DL (1.8-2.4); SODIUM 142 MMOL/L (135-145); TOTAL PROTEIN 7.9 GM/DL (6.4-8.2)
--- NOTE | 2018-02-25 19:02 | ED Chest Pain ---
General Chief Complaint: Chest Pain Stated Complaint: CHEST PAIN Nursing Triage Note: C/O CHEST PAIN SINCE 230 TODAY Nursing Sepsis Screen: No Definite Risk Source: patient Exam Limitations: no limitations History of Present Illness Date Seen by Provider: Feb 25, 2018 Time Seen by Provider: 18:30 Allergies and Home Medications Allergies Coded Allergies: No Known Drug Allergies (Unverified , 11/16/07) Home Medications Bismuth Subsalicylate 262 Mg/15 Ml Oral.susp, 30 ML PO UD PRN for DIARRHEA, ( Reported) Cetirizine HCl 10 Mg Tablet, 10 MG PO DAILY, (Reported) Fluticasone Propionate 16 Gm [place].susp, 1 SPRAY NS BID PRN for ALLERGIES, ( Reported) Hydrocodone Bit/Acetaminophen 1 Each Tablet, 1 TAB PO Q4H PRN for PAIN-MODERATE Prescribed by: PER WALL on 03/15/17 1139 Lactobacillus Acidophilus 1 Each Capsule, 1 CAP PO DAILY, (Reported) Levothyroxine Sodium 50 Mcg Tablet, 50 MCG PO DAILY, (Reported) Montelukast Sodium 10 Mg Tablet, 10 MG PO HS, (Reported) Ondansetron HCl 4 Mg Tab, 4 MG PO Q6H Prescribed by: PER WALL on 03/15/17 1139 Ranitidine HCl 150 Mg Tablet, 300 MG PO HS, (Reported) TAKES 2 (150MG) TABLETS Rivaroxaban 15 Mg Tablet, 15 MG PO BID@ Prescribed by: LULU DILLON on 03/14/17 1050 Rivaroxaban 20 Mg Tablet, 20 MG PO DAILY START XARELTO 20MG AFTER XARELTO 15MG BID X21 DAYS IS COMPLETE FOLLOW UP WITH PCP FOR REFILLS Prescribed by: LULU DILLON on 03/14/17 1050 Vitamin B Complex 1 Each Capsule, 1 CAP PO DAILY, (Reported) Past [id number] Hx Patient Social History Alcohol Use: Denies Use Recreational Drug Use: No Smoking Status: Never a Smoker 2nd Hand Smoke Exposure: No Recent Foreign Travel: No Contact w/Someone Who Travel: No Recent Infectious Disease Expo: No Recent Hopitalizations: No Immunizations Up To Date Tetanus Booster (TDap): Unknown PED Vaccines UTD: Yes Date of Influenza Vaccine: Jun 08, 2013 Seasonal Allergies Seasonal Allergies: Yes Past Medical History Surgeries: Yes (r ovary removed) Appendectomy, Section, Gallbladder, Oophorectomy Respiratory: Yes Asthma Currently Using CPAP: No Currently Using BIPAP: No Cardiac: No Neurological: No Reproductive Disorders: No Female Reproductive Disorders: Denies, Ovarian Cyst Sexually Transmitted Disease: No HIV/AIDS: No Genitourinary: No Gastrointestinal: No Musculoskeletal: Yes Arthritis, Chronic Back Pain Endocrine: No HEENT: No Cancer: No Psychosocial: No Integumentary: No Blood Disorders: No Adverse Reaction/Blood Tranf: No Family Medical History Asthma 19 MOTHER Cardiovascular disease 19 FATHER (heart problems) Cataracts G8 BROTHER (surgery x2 on eyes) Deafness or hearing loss G8 BROTHER (ear problems surgery on ears) Diabetes mellitus 19 FATHER Hypercholesterolemia 19 MOTHER Hypertension 19 FATHER 19 MOTHER Respiratory disorder G8 BROTHER (smokes) DVT/PE, Diabetes, Hypertension Physical Exam Vital Signs Vital Signs - First Documented 02/25/18 18:18 Temp 98.0 Pulse 73 Resp 18 B/P (MAP) 134/75 (94) Pulse Ox 98 O2 Delivery Room Air Capillary Refill : Less Than 3 Seconds Progress/Results/Core Measures Results/Orders Lab Results Laboratory Tests Test 02/25/18 18:20 Range/Units White Blood Count 7.4 4.3-11.0 10^3/uL Red Blood Count 4.31 L 4.35-5.85 10^6/uL Hemoglobin 13.6 11.5-16.0 G/DL Hematocrit 39 35-52 % Mean Corpuscular Volume 91 80-99 FL Mean Corpuscular Hemoglobin 32 25-34 PG Mean Corpuscular Hemoglobin Concent 35 32-36 G/DL Red Cell Distribution Width 13.7 10.0-14.5 % Platelet Count 241 130-400 10^3/uL Mean Platelet Volume 11.2 H 7.4-10.4 FL Neutrophils (%) (Auto) 61 42-75 % Lymphocytes (%) (Auto) 25 12-44 % Monocytes (%) (Auto) 12 0-12 % Eosinophils (%) (Auto) 1 0-10 % Basophils (%) (Auto) 0 0-10 % Neutrophils # (Auto) 4.5 1.8-7.8 X 10^3 Lymphocytes # (Auto) 1.9 1.0-4.0 X 10^3 Monocytes # (Auto) 0.9 0.0-1.0 X 10^3 Eosinophils # (Auto) 0.1 0.0-0.3 10^3/uL Basophils # (Auto) 0.0 0.0-0.1 10^3/uL Serum Test, Qualitative NEGATIVE NEGATIVE My Orders Orders - ROSALBA ALVAREZ DO Amylase (02/25/18 18:31) Cbc With Automated Diff (02/25/18 18:31) Comprehensive Metabolic Panel (02/25/18 18:31) Creatine Kinase (02/25/18 18:31) Creatine Kinase Mb (02/25/18 18:31) Lipase (02/25/18 18:31) Partial Thromboplastin Time (02/25/18 18:31) Protime With Inr (02/25/18 18:31) Troponin I (02/25/18 18:31) Chest 1 View, Ap/Pa Only (02/25/18 18:31) O2 (02/25/18 18:31) Ekg Tracing (02/25/18 18:31) Aspirin Chewable Tablet (Baby Aspirin Ch (02/25/18 18:45) BNP (02/25/18 18:31) Monitor-Rhythm Ecg Trace Only (02/25/18 18:31) Hcg,Qualitative Serum (02/25/18 18:31) Magnesium (02/25/18 18:31) Nitroglycerin 0.4 Mg Btl 25's (Nitrostat (02/25/18 18:45) Ct Angio Chest W (02/25/18 18:45) Iohexol Injection (Omnipaque 350 Mg/Ml 1 (02/25/18 19:00) Ns (Ivpb) (Sodium Chloride 0.9% Ivpb Bag (02/25/18 19:00) Medications Given in ED Current Medications Medications Dose Ordered Sig/Frances Route Start Time Stop Time Status Last Admin Dose Admin Iohexol 150 ml ONCE ONCE IV 02/25/18 19:00 02/25/18 19:01 02/25/18 18:58 140 ML Sodium Chloride 100 ml ONCE ONCE IV 02/25/18 19:00 02/25/18 19:01 02/25/18 18:59 100 ML Vital Signs/I&O 02/25/18 18:18 Temp 98.0 Pulse 73 Resp 18 B/P (MAP) 134/75 (94) Pulse Ox 98 O2 Delivery Room Air Blood Pressure Mean: 94 Departure Departure-Patient Inst. Referrals: BETZAIDA LI MD (PCP/Family) Primary Care Physician ROSALBA ALVAREZ DO Feb 25, 2018 19:02
[2018-02-25 19:09] LABS: CREATINE KINASE MB 0.3 NG/ML (<6.6)
[2018-02-25] MEDS: NITROGLYCERIN 0.4 MG SL TABS BTL 25'S SL PRN (19:20)
--- NOTE | 2018-02-25 19:29 | Diagnostic Imaging Report ---
PROCEDURE: CT angiography of the chest with contrast. TECHNIQUE: Multiple contiguous axial images were obtained through the chest after uneventful bolus administration of intravenous contrast. Reconstructed CTA MIP acquisitions were also performed. INDICATION: Chest pain and dyspnea. Comparison is made to study of 06/17/2017. FINDINGS: There is good opacification of pulmonary arteries without intraluminal filling defect identified. Thoracic aorta is unremarkable without evidence of dissection or aneurysm. Pleural thickening posteriorly in the right base is similar to the previous study. There is no evidence of consolidation elsewhere in the lungs. No significant pleural or pericardial fluid is identified. IMPRESSION: No CTA evidence of pulmonary embolism or other acute abnormality in the chest. Overall, findings have not significantly changed when compared to the previous study. Dictated by: Dictated on workstation # [id number]
--- OUTSIDE RECORDS SUMMARY | 2018-02-25 20:13 | XMS REPORT | Continuity of Care Document ---
Author Author [facility] Address Unknown Phone Unavailable Allergies Active Description Code Type Severity Reaction Onset Reported/Identified Relationship to Patient Clinical Status Yes No Known Drug Allergies [id number] Drug Allergy Unknown N/A 11/16/2007 Medications There is no data. Problems Date Dx Coded Attending Type Code Diagnosis Diagnosed By 07/22/2013 FRANCES FARAH DO V04.81 FLU SHOT 07/22/2013 PARIS JUNE APRN V04.81 FLU SHOT 09/12/2013 CRISTINA SILVA MD Ot 623.8 09/12/2013 CRISTINA SILVA MD Ot 625.3 04/27/2014 PARIS JUNE APRN V70.5 EXAM - PRE-EMPLOYMENT 07/21/2015 KAYE HENNESSY, BLADIMIR Thompson Ot R07.89 OTHER CHEST PAIN 03/02/2017 JENA NOLAN APRN Ot M25.511 PAIN IN RIGHT SHOULDER 03/02/2017 JENA NOLAN APRN Ot M62.838 OTHER MUSCLE SPASM 03/13/2017 BETZAIDA LI MD Ot E66.9 OBESITY, UNSPECIFIED 03/13/2017 BETZAIDA LI MD Ot I26.99 OTHER PULMONARY EMBOLISM WITHOUT ACUTE C 03/13/2017 BETZAIDA LI MD Ot J18.9 PNEUMONIA, UNSPECIFIED ORGANISM 03/13/2017 BETZAIDA LI MD Ot Z68.32 BODY MASS INDEX (BMI) 32.0-32.9, ADULT 03/13/2017 BETZAIDA LI MD Ot E66.9 OBESITY, UNSPECIFIED 03/13/2017 BETZAIDA LI MD Ot I26.99 OTHER PULMONARY EMBOLISM WITHOUT ACUTE C 03/13/2017 BETZAIDA LI MD, Ot J18.9 PNEUMONIA, UNSPECIFIED ORGANISM 03/13/2017 BETZAIDA LI MD Ot Z68.32 BODY MASS INDEX (BMI) 32.0-32.9, ADULT 03/14/2017 BETZAIDA LI MD Ot E66.9 OBESITY, UNSPECIFIED 03/14/2017 BETZAIDA LI MD A Ot I26.99 OTHER PULMONARY EMBOLISM WITHOUT ACUTE C 03/14/2017 BETZAIDA LI MD A Ot J18.9 PNEUMONIA, UNSPECIFIED ORGANISM 03/14/2017 BETZAIDA LI MD Ot Z68.32 BODY MASS INDEX (BMI) 32.0-32.9, ADULT 03/15/2017 BETZAIDA LI MD Ot E66.9 OBESITY, UNSPECIFIED 03/15/2017 BETZAIDA LI MD A Ot I26.99 OTHER PULMONARY EMBOLISM WITHOUT ACUTE C 03/15/2017 BETZAIDA LI MD A Ot J18.9 PNEUMONIA, UNSPECIFIED ORGANISM 03/15/2017 BETZAIDA LI MD Ot Z68.32 BODY MASS INDEX (BMI) 32.0-32.9, ADULT 03/15/2017 BETZAIDA LI MD Ot E66.9 OBESITY, UNSPECIFIED 03/15/2017 BETZAIDA LI MD Ot I26.99 OTHER PULMONARY EMBOLISM WITHOUT ACUTE C 03/15/2017 BETZAIDA LI MD Ot J18.9 PNEUMONIA, UNSPECIFIED ORGANISM 03/15/2017 BETZAIDA LI MD Ot Z68.32 BODY MASS INDEX (BMI) 32.0-32.9, ADULT 03/15/2017 BETZAIDA LI MD Ot E66.9 OBESITY, UNSPECIFIED 03/15/2017 BETZAIDA LI MD Ot I26.99 OTHER PULMONARY EMBOLISM WITHOUT ACUTE C 03/15/2017 BETZAIDA LI MD Ot J18.9 PNEUMONIA, UNSPECIFIED ORGANISM 03/15/2017 EBTZAIDA LI MD Ot Z68.32 BODY MASS INDEX (BMI) 32.0-32.9, ADULT 04/08/2017 LULU DILLON MD Ot K42.9 UMBILICAL HERNIA WITHOUT OBSTRUCTION OR 04/08/2017 LULU DILLON MD Ot R16.1 SPLENOMEGALY, NOT ELSEWHERE CLASSIFIED 04/08/2017 LULU DILLON MD Ot R91.8 OTHER NONSPECIFIC ABNORMAL FINDING OF ALLYN 04/08/2017 LULU DILLON MD Ot K42.9 UMBILICAL HERNIA WITHOUT OBSTRUCTION OR 04/08/2017 LULU DILLON MD Ot R16.1 SPLENOMEGALY, NOT ELSEWHERE CLASSIFIED 04/08/2017 LULU DILLON MD Ot R91.8 OTHER NONSPECIFIC ABNORMAL FINDING OF ALLYN 04/10/2017 LULU DILLON MD Ot D68.8 OTHER SPECIFIED COAGULATION DEFECTS 04/10/2017 LULU DILLON MD Ot E03.9 HYPOTHYROIDISM, UNSPECIFIED 04/10/2017 LULU DILLON MD Ot E66.9 OBESITY, UNSPECIFIED 04/10/2017 LULU DILLON MD Ot I26.99 OTHER PULMONARY EMBOLISM WITHOUT ACUTE C 04/10/2017 LULU DILLON MD Ot R16.1 SPLENOMEGALY, NOT ELSEWHERE CLASSIFIED 04/10/2017 LULU DILLON MD Ot Z68.31 BODY MASS INDEX (BMI) 31.0-31.9, ADULT 04/10/2017 LULU DILLON MD Ot Z79.01 DIRECTOR REGULATORY AGENCY (CURRENT) USE OF ANTICOAGULANT 04/10/2017 LULU DILLON MD Ot Z79.899 OTHER SENIOR LIVING (CURRENT) DRUG THERAPY 04/10/2017 LULU DILLON MD Ot Z83.2 FAMILY HISTORY OF DIS OF THE BLD/BLD-FOR 04/10/2017 NATALY CLARKE MD, Ot D68.8 OTHER SPECIFIED COAGULATION DEFECTS 04/10/2017 NATALY CLARKE MD, Ot E03.9 HYPOTHYROIDISM, UNSPECIFIED 04/10/2017 NATALY CLARKE MD Ot E66.9 OBESITY, UNSPECIFIED 04/10/2017 NATALY CLARKE MD Ot I26.99 OTHER PULMONARY EMBOLISM WITHOUT ACUTE C 04/10/2017 NATALY CLARKE MD Ot R16.1 SPLENOMEGALY, NOT ELSEWHERE CLASSIFIED 04/10/2017 NATALY CLARKE MD, Ot Z68.31 BODY MASS INDEX (BMI) 31.0-31.9, ADULT 04/10/2017 NATALY CLARKE MD, Ot Z79.01 SENIOR LIVING (CURRENT) USE OF ANTICOAGULANT 04/10/2017 NATALY CLARKE MD Ot Z79.899 OTHER SENIOR LIVING (CURRENT) DRUG THERAPY 04/10/2017 NATALY CLARKE MD Ot Z83.2 FAMILY HISTORY OF DIS OF THE BLD/BLD-FOR 04/10/2017 NATALY CLARKE MD, Ot D68.8 OTHER SPECIFIED COAGULATION DEFECTS 04/10/2017 NATALY CLARKE MD Ot E03.9 HYPOTHYROIDISM, UNSPECIFIED 04/10/2017 NATALY CLARKE MD Ot E66.9 OBESITY, UNSPECIFIED 04/10/2017 NATALY CLARKE MD Ot I26.99 OTHER PULMONARY EMBOLISM WITHOUT ACUTE C 04/10/2017 NATALY CLARKE MD Ot R16.1 SPLENOMEGALY, NOT ELSEWHERE CLASSIFIED 04/10/2017 NATALY CLARKE MD Ot Z68.31 BODY MASS INDEX (BMI) 31.0-31.9, ADULT 04/10/2017 NATALY CLARKE MD Ot Z79.01 SENIOR LIVING (CURRENT) USE OF ANTICOAGULANT 04/10/2017 NATALY CLARKE MD Ot Z79.899 OTHER SENIOR LIVING (CURRENT) DRUG THERAPY 04/10/2017 NATALY CLARKE MD Ot Z83.2 FAMILY HISTORY OF DIS OF THE BLD/BLD-FOR 04/11/2017 NATALY CLARKE MD Ot D68.8 OTHER SPECIFIED COAGULATION DEFECTS 04/11/2017 NATALY CLARKE MD Ot E03.9 HYPOTHYROIDISM, UNSPECIFIED 04/11/2017 NATALY CLARKE MD Ot E66.9 OBESITY, UNSPECIFIED 04/11/2017 NATALY CLARKE MD Ot I26.99 OTHER PULMONARY EMBOLISM WITHOUT ACUTE C 04/11/2017 NATALY CLARKE MD Ot R16.1 SPLENOMEGALY, NOT ELSEWHERE CLASSIFIED 04/11/2017 NATALY CLARKE MD Ot Z68.31 BODY MASS INDEX (BMI) 31.0-31.9, ADULT 04/11/2017 NATALY CLARKE MD Ot Z79.01 DIRECTOR REGULATORY AGENCY (CURRENT) USE OF ANTICOAGULANT 04/11/2017 NATALY CLARKE MD Ot Z79.899 OTHER SENIOR LIVING (CURRENT) DRUG THERAPY 04/11/2017 NATALY CLARKE MD Ot Z83.2 FAMILY HISTORY OF DIS OF THE BLD/BLD-FOR 04/15/2017 NATALY CLARKE MD Ot D68.8 OTHER SPECIFIED COAGULATION DEFECTS 04/15/2017 NATALY CLARKE MD Ot E03.9 HYPOTHYROIDISM, UNSPECIFIED 04/15/2017 NATALY CLARKE MD Ot E66.9 OBESITY, UNSPECIFIED 04/15/2017 NATALY CLARKE MD Ot I26.99 OTHER PULMONARY EMBOLISM WITHOUT ACUTE C 04/15/2017 NATALY CLARKE MD Ot R16.1 SPLENOMEGALY, NOT ELSEWHERE CLASSIFIED 04/15/2017 NATALY CLARKE MD Ot Z68.31 BODY MASS INDEX (BMI) 31.0-31.9, ADULT 04/15/2017 NATALY CLARKE MD, Ot Z79.01 DIRECTOR REGULATORY AGENCY (CURRENT) USE OF ANTICOAGULANT 04/15/2017 NATALY CLARKE MD, Ot Z79.899 OTHER DIRECTOR REGULATORY AGENCY (CURRENT) DRUG THERAPY 04/15/2017 NATALY CLARKE MD, Ot Z83.2 FAMILY HISTORY OF DIS OF THE BLD/BLD-FOR 04/16/2017 LULU DILLON MD Ot K42.9 UMBILICAL HERNIA WITHOUT OBSTRUCTION OR 04/16/2017 LULU DILLON MD Ot R16.1 SPLENOMEGALY, NOT ELSEWHERE CLASSIFIED 04/16/2017 LULU DILLON MD Ot R91.8 OTHER NONSPECIFIC ABNORMAL FINDING OF ALLYN 05/21/2017 NATALY CLARKE MD, Ot D68.8 OTHER SPECIFIED COAGULATION DEFECTS 05/21/2017 NATALY CLARKE MD, Ot E03.9 HYPOTHYROIDISM, UNSPECIFIED 05/21/2017 NATALY CLARKE MD Ot E66.9 OBESITY, UNSPECIFIED 05/21/2017 NATALY CLARKE MD Ot I26.99 OTHER PULMONARY EMBOLISM WITHOUT ACUTE C 05/21/2017 NATALY CLARKE MD Ot R16.1 SPLENOMEGALY, NOT ELSEWHERE CLASSIFIED 05/21/2017 NATALY CLARKE MD, Ot Z68.31 BODY MASS INDEX (BMI) 31.0-31.9, ADULT 05/21/2017 NATALY CLARKE MD, Ot Z79.01 SENIOR LIVING (CURRENT) USE OF ANTICOAGULANT 05/21/2017 NATALY CLARKE MD, Ot Z79.899 OTHER SENIOR LIVING (CURRENT) DRUG THERAPY 05/21/2017 NATALY CLARKE MD, Ot Z83.2 FAMILY HISTORY OF DIS OF THE BLD/BLD-FOR 06/07/2017 NATALY CLARKE MD, Ot D68.8 OTHER SPECIFIED COAGULATION DEFECTS 06/07/2017 NATALY CLARKE MD Ot E03.9 HYPOTHYROIDISM, UNSPECIFIED 06/07/2017 NATALY CLARKE MD Ot E66.9 OBESITY, UNSPECIFIED 06/07/2017 NATALY CLARKE MD Ot I26.99 OTHER PULMONARY EMBOLISM WITHOUT ACUTE C 06/07/2017 NATALY CLARKE MD Ot R16.1 SPLENOMEGALY, NOT ELSEWHERE CLASSIFIED 06/07/2017 NATALY CLARKE MD, Ot Z68.31 BODY MASS INDEX (BMI) 31.0-31.9, ADULT 06/07/2017 NATALY CLARKE MD Ot Z79.01 SENIOR LIVING (CURRENT) USE OF ANTICOAGULANT 06/07/2017 NATALY CLARKE MD Ot Z79.899 OTHER DIRECTOR REGULATORY AGENCY (CURRENT) DRUG THERAPY 06/07/2017 NATALY CLARKE MD Ot Z83.2 FAMILY HISTORY OF DIS OF THE BLD/BLD-FOR 06/16/2017 NATALY CLARKE MD Ot D68.8 OTHER SPECIFIED COAGULATION DEFECTS 06/16/2017 NATALY CLARKE MD Ot E03.9 HYPOTHYROIDISM, UNSPECIFIED 06/16/2017 NATALY CLARKE MD Ot E66.9 OBESITY, UNSPECIFIED 06/16/2017 NATALY CLARKE MD Ot I26.99 OTHER PULMONARY EMBOLISM WITHOUT ACUTE C 06/16/2017 NATALY CLARKE MD Ot R16.1 SPLENOMEGALY, NOT ELSEWHERE CLASSIFIED 06/16/2017 NATALY CLARKE MD Ot Z68.31 BODY MASS INDEX (BMI) 31.0-31.9, ADULT 06/16/2017 NATALY CLARKE MD Ot Z79.01 DIRECTOR REGULATORY AGENCY (CURRENT) USE OF ANTICOAGULANT 06/16/2017 NATALY CLARKE MD Ot Z79.899 OTHER SENIOR LIVING (CURRENT) DRUG THERAPY 06/16/2017 NATALY CLARKE MD Ot Z83.2 FAMILY HISTORY OF DIS OF THE BLD/BLD-FOR 06/19/2017 NATALY CLARKE MD Ot D68.8 OTHER SPECIFIED COAGULATION DEFECTS 06/19/2017 NATALY CLARKE MD Ot E03.9 HYPOTHYROIDISM, UNSPECIFIED 06/19/2017 NATALY CLARKE MD Ot E66.9 OBESITY, UNSPECIFIED 06/19/2017 NATALY CLARKE MD Ot I26.99 OTHER PULMONARY EMBOLISM WITHOUT ACUTE C 06/19/2017 NATALY CLARKE MD Ot R16.1 SPLENOMEGALY, NOT ELSEWHERE CLASSIFIED 06/19/2017 NATALY CLARKE MD Ot Z68.31 BODY MASS INDEX (BMI) 31.0-31.9, ADULT 06/19/2017 NATALY CLARKE MD Ot Z79.01 SENIOR LIVING (CURRENT) USE OF ANTICOAGULANT 06/19/2017 NATALY CLARKE MD Ot Z79.899 OTHER DIRECTOR REGULATORY AGENCY (CURRENT) DRUG THERAPY 06/19/2017 NATALY CLARKE MD Ot Z83.2 FAMILY HISTORY OF DIS OF THE BLD/BLD-FOR 06/25/2017 NATALY CLARKE MD Ot I26.99 OTHER PULMONARY EMBOLISM WITHOUT ACUTE C 07/23/2017 NATALY CLARKE MD Ot D68.8 OTHER SPECIFIED COAGULATION DEFECTS 07/23/2017 NATALY CLARKE MD Ot E03.9 HYPOTHYROIDISM, UNSPECIFIED 07/23/2017 NATALY CLARKE MD Ot E66.9 OBESITY, UNSPECIFIED 07/23/2017 NATALY CLARKE MD Ot I26.99 OTHER PULMONARY EMBOLISM WITHOUT ACUTE C 07/23/2017 NATALY CLARKE MD Ot R16.1 SPLENOMEGALY, NOT ELSEWHERE CLASSIFIED 07/23/2017 NATALY CLARKE MD Ot Z68.31 BODY MASS INDEX (BMI) 31.0-31.9, ADULT 07/23/2017 NATALY CLARKE MD Ot Z79.01 DIRECTOR REGULATORY AGENCY (CURRENT) USE OF ANTICOAGULANT 07/23/2017 NATALY CLARKE MD Ot Z79.899 OTHER DIRECTOR REGULATORY AGENCY (CURRENT) DRUG THERAPY 07/23/2017 NATALY CLARKE MD Ot Z83.2 FAMILY HISTORY OF DIS OF THE BLD/BLD-FOR 09/16/2017 NATALY CLARKE MD Ot D68.8 OTHER SPECIFIED COAGULATION DEFECTS 09/16/2017 NATALY LCARKE MD Ot E03.9 HYPOTHYROIDISM, UNSPECIFIED 09/16/2017 NATALY CLARKE MD Ot E66.9 OBESITY, UNSPECIFIED 09/16/2017 NATALY CLARKE MD Ot I26.99 OTHER PULMONARY EMBOLISM WITHOUT ACUTE C 09/16/2017 NATALY CLARKE MD Ot R16.1 SPLENOMEGALY, NOT ELSEWHERE CLASSIFIED 09/16/2017 NATALY CLARKE MD Ot Z68.31 BODY MASS INDEX (BMI) 31.0-31.9, ADULT 09/16/2017 NATALY CLARKE MD Ot Z79.01 DIRECTOR REGULATORY AGENCY (CURRENT) USE OF ANTICOAGULANT 09/16/2017 NATALY CLARKE MD Ot Z79.899 OTHER DIRECTOR REGULATORY AGENCY (CURRENT) DRUG THERAPY 09/16/2017 NATALY CLARKE MD Ot Z83.2 FAMILY HISTORY OF DIS OF THE BLD/BLD-FOR 10/22/2017 NATALY CLARKE MD Ot D68.8 OTHER SPECIFIED COAGULATION DEFECTS 10/22/2017 NATALY CLARKE MD Ot E03.9 HYPOTHYROIDISM, UNSPECIFIED 10/22/2017 NATALY CLARKE MD Ot E66.9 OBESITY, UNSPECIFIED 10/22/2017 NATALY CLARKE MD Ot I26.99 OTHER PULMONARY EMBOLISM WITHOUT ACUTE C 10/22/2017 NATALY CLARKE MD Ot R16.1 SPLENOMEGALY, NOT ELSEWHERE CLASSIFIED 10/22/2017 NATALY CLARKE MD Ot Z68.31 BODY MASS INDEX (BMI) 31.0-31.9, ADULT 10/22/2017 NATAYL CLARKE MD Ot Z79.01 SENIOR LIVING (CURRENT) USE OF ANTICOAGULANT 10/22/2017 NATALY CLARKE MD Ot Z79.899 OTHER SENIOR LIVING (CURRENT) DRUG THERAPY 10/22/2017 NATALY CLARKE MD Ot Z83.2 FAMILY HISTORY OF DIS OF THE BLD/BLD-FOR 10/24/2017 NATALY CLARKE MD Ot D68.8 OTHER SPECIFIED COAGULATION DEFECTS 10/24/2017 NATALY CLARKE MD Ot E03.9 HYPOTHYROIDISM, UNSPECIFIED 10/24/2017 NATALY CLARKE MD Ot E66.9 OBESITY, UNSPECIFIED 10/24/2017 NATALY CLARKE MD Ot I26.99 OTHER PULMONARY EMBOLISM WITHOUT ACUTE C 10/24/2017 NATALY CLARKE MD Ot R16.1 SPLENOMEGALY, NOT ELSEWHERE CLASSIFIED 10/24/2017 NATALY CLARKE MD Ot Z68.31 BODY MASS INDEX (BMI) 31.0-31.9, ADULT 10/24/2017 NATALY CLARKE MD Ot Z79.01 DIRECTOR REGULATORY AGENCY (CURRENT) USE OF ANTICOAGULANT 10/24/2017 NATALY CLARKE MD Ot Z79.899 OTHER DIRECTOR REGULATORY AGENCY (CURRENT) DRUG THERAPY 10/24/2017 NATALY CLARKE MD Ot Z83.2 FAMILY HISTORY OF DIS OF THE BLD/BLD-FOR 01/21/2018 NATALY CLARKE MD Ot D68.8 OTHER SPECIFIED COAGULATION DEFECTS 01/21/2018 NATALY CLARKE MD Ot E03.9 HYPOTHYROIDISM, UNSPECIFIED 01/21/2018 NATALY CLARKE MD Ot E66.9 OBESITY, UNSPECIFIED 01/21/2018 NATALY CLARKE MD Ot R16.1 SPLENOMEGALY, NOT ELSEWHERE CLASSIFIED 01/21/2018 NATAYL CLARKE MD Ot Z68.31 BODY MASS INDEX (BMI) 31.0-31.9, ADULT 01/21/2018 NATALY CLARKE MD Ot Z79.899 OTHER DIRECTOR REGULATORY AGENCY (CURRENT) DRUG THERAPY 01/21/2018 NATALY CLARKE MD Ot Z83.2 FAMILY HISTORY OF DIS OF THE BLD/BLD-FOR 01/21/2018 NATALY CLARKE MD Ot Z86.711 PERSONAL HISTORY OF PULMONARY EMBOLISM 01/23/2018 NATALY CLARKE MD Ot D68.8 OTHER SPECIFIED COAGULATION DEFECTS 01/23/2018 NATALY CLARKE MD Ot E03.9 HYPOTHYROIDISM, UNSPECIFIED 01/23/2018 NATALY CLARKE MD Ot E66.9 OBESITY, UNSPECIFIED 01/23/2018 NATALY CLARKE MD Ot R16.1 SPLENOMEGALY, NOT ELSEWHERE CLASSIFIED 01/23/2018 NATALY CLARKE MD Ot Z68.31 BODY MASS INDEX (BMI) 31.0-31.9, ADULT 01/23/2018 NATALY CLARKE MD Ot Z79.899 OTHER DIRECTOR REGULATORY AGENCY (CURRENT) DRUG THERAPY 01/23/2018 NATALY CLARKE MD Ot Z83.2 FAMILY HISTORY OF DIS OF THE BLD/BLD-FOR 01/23/2018 NATALY CLARKE MD Ot Z86.711 PERSONAL HISTORY OF PULMONARY EMBOLISM Procedures Code Description [place] [address] UA LONG DIP 04/27/2014 Results Test Result Range Complete blood count (CBC) with automated white blood cell (WBC) differential - 03/11/17 21:25 Blood leukocytes automated count (number/volume) 11.1 10*3/uL 4.3-11.0 Blood erythrocytes automated count (number/volume) 4.03 10*6/uL 4.35-5.85 Venous blood hemoglobin measurement (mass/volume) 12.3 g/dL 11.5-16.0 Blood hematocrit (volume fraction) 37 % 35-52 Automated erythrocyte mean corpuscular volume 91 [foz_us] 80-99 Automated erythrocyte mean corpuscular hemoglobin (mass per erythrocyte) 31 pg 25-34 Automated erythrocyte mean corpuscular hemoglobin concentration measurement ( mass/volume) 33 g/dL 32-36 Automated erythrocyte distribution width ratio 12.4 % 10.0-14.5 Automated blood platelet count (count/volume) 335 10*3/uL 130-400 Automated blood platelet mean volume measurement 9.9 [foz_us] 7.4-10.4 Automated blood neutrophils/100 leukocytes 79 % 42-75 Automated blood lymphocytes/100 leukocytes 12 % 12-44 Blood monocytes/100 leukocytes 8 % 0-12 Automated blood eosinophils/100 leukocytes 1 % 0-10 Automated blood basophils/100 leukocytes 0 % 0-10 Blood neutrophils automated count (number/volume) 8.8 10*3 1.8-7.8 Blood lymphocytes automated count (number/volume) 1.3 10*3 1.0-4.0 Blood monocytes automated count (number/volume) 0.9 10*3 0.0-1.0 Automated eosinophil count 0.1 10*3/uL 0.0-0.3 Automated blood basophil count (count/volume) 0.0 10*3/uL 0.0-0.1 Serum or plasma choriogonadotropin ( test) detection - 03/11/17 21:25 Serum or plasma choriogonadotropin ( test) detection NEGATIVE NEGATIVE PT panel in platelet poor plasma by coagulation assay - 03/11/17 21:25 Prothrombin time (PT) in platelet poor plasma by coagulation assay 14.3 s 12.2-14.7 INR in platelet poor plasma or blood by coagulation assay 1.1 0.8-1.4 Activated partial thromboplastin time (aPTT) in platelet poor plasma bycoagulation assay - 03/11/17 21:25 Activated partial thromboplastin time (aPTT) in platelet poor plasma bycoagulation assay 28 s 24-35 Comprehensive metabolic panel - 03/11/17 21:25 Serum or plasma sodium measurement (moles/volume) 140 mmol/L 135-145 Serum or plasma potassium measurement (moles/volume) 3.6 mmol/L 3.6-5.0 Serum or plasma chloride measurement (moles/volume) 103 mmol/L 98-107 Carbon dioxide 21 mmol/L 21-32 Serum or plasma anion gap determination (moles/volume) 16 mmol/L 5-14 Serum or plasma urea nitrogen measurement (mass/volume) 14 mg/dL 7-18 Serum or plasma creatinine measurement (mass/volume) 0.81 mg/dL 0.60-1.30 Serum or plasma urea nitrogen/creatinine mass ratio 17 NRG Serum or plasma creatinine measurement with calculation of estimated glomerular filtration rate > NRG Serum or plasma glucose measurement (mass/volume) 135 mg/dL 70-105 Serum or plasma calcium measurement (mass/volume) 9.3 mg/dL 8.5-10.1 Serum or plasma total bilirubin measurement (mass/volume) 0.4 mg/dL 0.1-1.0 Serum or plasma alkaline phosphatase measurement (enzymatic activity/volume) 85 U/L 40-136 Serum or plasma aspartate aminotransferase measurement (enzymatic activity/ volume) 13 U/L 5-34 Serum or plasma alanine aminotransferase measurement (enzymatic activity/volume ) 21 U/L 0-55 Serum or plasma protein measurement (mass/volume) 7.9 g/dL 6.4-8.2 Serum or plasma albumin measurement (mass/volume) 4.0 g/dL 3.2-4.5 Magnesium - 03/11/17 21:25 Magnesium 1.9 mg/dL 1.8-2.4 Serum or plasma creatine kinase measurement (enzymatic activity/volume) - 03/11 21:25 Serum or plasma creatine kinase measurement (enzymatic activity/volume) 35 U/L 29-168 Serum or plasma creatine kinase MB measurement (enzymatic activity/volume) - 21:25 Serum or plasma creatine kinase MB measurement (enzymatic activity/volume) 0.3 ng/mL <6.6 Serum or plasma troponin i.cardiac measurement (mass/volume) - 03/11/17 21:25 Serum or plasma troponin i.cardiac measurement (mass/volume) < ng/ mL <0.30 Serum or plasma lithium measurement (moles/volume) - 03/11/17 21:25 BNP level 42.3 pg/mL <100.0 Serum or plasma amylase measurement (enzymatic activity/volume) - 03/11/17 21: 25 Serum or plasma amylase measurement (enzymatic activity/volume) 15 U /L 25-125 Lipase - 03/11/17 21:25 Lipase 13 U/L 8-78 Blood lactic acid measurement (moles/volume) - 03/11/17 23:20 Blood lactic acid measurement (moles/volume) 1.99 mmol/L 0.50-2.00 Bacterial blood culture - 03/11/17 23:20 Bacterial blood culture [facility] Bacterial blood culture - 03/11/17 23:28 Bacterial blood culture [facility] [id number] - 03/12/17 00:30 Lupus anticoagulant-sensitive activated partial thromboplastin time (APTT) in platelet poor plasma 36.0 s 20.6-39.2 PT panel - platelet poor plasma by coagulation assay 14.5 s 10.5-15.7 INR in platelet poor plasma by coagulation assay 1.1 0.7 -1.3 Pathology consultation and report [facility] Factor VIII (VW factor) antigen assay 127 % 60-150 Homocysteine [mass/volume] in serum or plasma 8.3 % <= 10.3 Serum cardiolipin IgG antibody detection 1.2 0.0-15.0 Serum cardiolipin IgM ab 11.7 [MPL'U] 0.0-12.5 Prothrombin gene [id number] mutation detection SEE [facility] Serum beta 2 glycoprotein 1 IgM antibody detection 7.3 0.0-20.0 Serum beta 2 glycoprotein 1 IgG antibody detection 0.2 0.0-19.9 Activated protein C (APC) resistance assay 2.19 % >=1.90 Antithrombin antigen measurement (units/volume) in platelet poor plasmaby immunologic method - 03/12/17 00:30 Antithrombin antigen measurement in platelet poor plasma by immunologicmethod ( moles/volume) 117 % 80-120 Antithrombin antigen actual/normal in platelet poor plasma by immunologic method - 03/12/17 00:30 Antithrombin actual/normal in Platelet poor plasma by Chromogenic method 79 % 84-143 Functional protein C measurement - 03/12/17 00:30 Functional protein C measurement 110 % 70-130 Protein S actual/normal in Platelet poor plasma by Coagulation assay - 00:30 Protein S actual/normal in Platelet poor plasma by Coagulation assay 119 % 65-140 Dilute Deshaun's viper venom time - 03/12/17 00:30 Dilute Deshaun's viper venom time (DRVVT) screening test 0.98 % 0.00-1.20 Complete blood count (CBC) with automated white blood cell (WBC) differential - 03/12/17 03:45 Blood leukocytes automated count (number/volume) 14.7 10*3/uL 4.3-11.0 Blood erythrocytes automated count (number/volume) 3.75 10*6/uL 4.35-5.85 Venous blood hemoglobin measurement (mass/volume) 11.6 g/dL 11.5-16.0 Blood hematocrit (volume fraction) 35 % 35-52 Automated erythrocyte mean corpuscular volume 92 [foz_us] 80-99 Automated erythrocyte mean corpuscular hemoglobin (mass per erythrocyte) 31 pg 25-34 Automated erythrocyte mean corpuscular hemoglobin concentration measurement ( mass/volume) 34 g/dL 32-36 Automated erythrocyte distribution width ratio 12.6 % 10.0-14.5 Automated blood platelet count (count/volume) 386 10*3/uL 130-400 Automated blood platelet mean volume measurement 10.7 [foz_us] 7.4-10.4 Automated blood neutrophils/100 leukocytes 63 % 42-75 Automated blood lymphocytes/100 leukocytes 13 % 12-44 Blood monocytes/100 leukocytes 12 % 0-12 Automated blood eosinophils/100 leukocytes 12 % 0-10 Automated blood basophils/100 leukocytes 0 % 0-10 Blood neutrophils automated count (number/volume) 9.3 10*3 1.8-7.8 Blood lymphocytes automated count (number/volume) 1.9 10*3 1.0-4.0 Blood monocytes automated count (number/volume) 1.7 10*3 0.0-1.0 Automated eosinophil count 1.8 10*3/uL 0.0-0.3 Automated blood basophil count (count/volume) 0.0 10*3/uL 0.0-0.1 Comprehensive metabolic panel - 03/12/17 03:45 Serum or plasma sodium measurement (moles/volume) 137 mmol/L 135-145 Serum or plasma potassium measurement (moles/volume) 4.3 mmol/L 3.6-5.0 Serum or plasma chloride measurement (moles/volume) 106 mmol/L 98-107 Carbon dioxide 16 mmol/L 21-32 Serum or plasma anion gap determination (moles/volume) 15 mmol/L 5-14 Serum or plasma urea nitrogen measurement (mass/volume) 12 mg/dL 7-18 Serum or plasma creatinine measurement (mass/volume) 0.78 mg/dL 0.60-1.30 Serum or plasma urea nitrogen/creatinine mass ratio 15 NRG Serum or plasma creatinine measurement with calculation of estimated glomerular filtration rate > NRG Serum or plasma glucose measurement (mass/volume) 96 mg/dL 70-105 Serum or plasma calcium measurement (mass/volume) 8.5 mg/dL 8.5-10.1 Serum or plasma total bilirubin measurement (mass/volume) 0.3 mg/dL 0.1-1.0 Serum or plasma alkaline phosphatase measurement (enzymatic activity/volume) 79 U/L 40-136 Serum or plasma aspartate aminotransferase measurement (enzymatic activity/ volume) 29 U/L 5-34 Serum or plasma alanine aminotransferase measurement (enzymatic activity/volume ) 21 U/L 0-55 Serum or plasma protein measurement (mass/volume) 7.8 g/dL 6.4-8.2 Serum or plasma albumin measurement (mass/volume) 3.5 g/dL 3.2-4.5 Complete blood count (CBC) with automated white blood cell (WBC) differential - 03/13/17 03:59 Blood leukocytes automated count (number/volume) 10.9 10*3/uL 4.3-11.0 Blood erythrocytes automated count (number/volume) 3.65 10*6/uL 4.35-5.85 Venous blood hemoglobin measurement (mass/volume) 11.0 g/dL 11.5-16.0 Blood hematocrit (volume fraction) 33 % 35-52 Automated erythrocyte mean corpuscular volume 92 [foz_us] 80-99 Automated erythrocyte mean corpuscular hemoglobin (mass per erythrocyte) 30 pg 25-34 Automated erythrocyte mean corpuscular hemoglobin concentration measurement ( mass/volume) 33 g/dL 32-36 Automated erythrocyte distribution width ratio 12.4 % 10.0-14.5 Automated blood platelet count (count/volume) 327 10*3/uL 130-400 Automated blood platelet mean volume measurement 10.2 [foz_us] 7.4-10.4 Automated blood neutrophils/100 leukocytes 66 % 42-75 Automated blood lymphocytes/100 leukocytes 20 % 12-44 Blood monocytes/100 leukocytes 10 % 0-12 Automated blood eosinophils/100 leukocytes 5 % 0-10 Automated blood basophils/100 leukocytes 0 % 0-10 Blood neutrophils automated count (number/volume) 7.2 10*3 1.8-7.8 Blood lymphocytes automated count (number/volume) 2.2 10*3 1.0-4.0 Blood monocytes automated count (number/volume) 1.1 10*3 0.0-1.0 Automated eosinophil count 0.5 10*3/uL 0.0-0.3 Automated blood basophil count (count/volume) 0.0 10*3/uL 0.0-0.1 Whole blood basic metabolic panel - 03/13/17 03:59 Serum or plasma sodium measurement (moles/volume) 139 mmol/L 135-145 Serum or plasma potassium measurement (moles/volume) 3.7 mmol/L 3.6-5.0 Serum or plasma chloride measurement (moles/volume) 104 mmol/L 98-107 Carbon dioxide 26 mmol/L 21-32 Serum or plasma anion gap determination (moles/volume) 9 mmol/L 5-14 Serum or plasma urea nitrogen measurement (mass/volume) 11 mg/dL 7-18 Serum or plasma creatinine measurement (mass/volume) 0.85 mg/dL 0.60-1.30 Serum or plasma urea nitrogen/creatinine mass ratio 13 NRG Serum or plasma creatinine measurement with calculation of estimated glomerular filtration rate > NRG Serum or plasma glucose measurement (mass/volume) 96 mg/dL 70-105 Serum or plasma calcium measurement (mass/volume) 10.2 mg/dL 8.5-10.1 ANTI-NUCLEAR AB (DENILSON) ANALYZER - 03/13/17 03:59 Screening antinuclear antibody (DENILSON) assay by enzyme immunoassay <1: 80 <1:80 Blood or tissue F5 gene p.R506Q detection by molecular genetics method - 03:59 Blood or tissue F5 gene p.R506Q detection by molecular genetics method Negative Negative Coagulation factor 5 activated measurement (units/volume) in platelet poor plasma by coagulation assay See Footnote NRG Encounters ACCT No. Visit Date/Time Discharge Status Pt. Type Provider Facility Loc./Unit Complaint [id number] 04/27/2014 09:28:00 04/27/2014 23:59:59 CLS Outpatient PARIS JUNE APRN [id number] 07/22/2013 11:00:00 07/22/2013 23:59:59 CLS Outpatient SOFI GOSS FRANCES Fam [id number] 01/22/2018 00:08:00 01/22/2018 23:59:59 CLS Preadmit VINCE HENNESSY, NATALY [facility] [id number] 10/23/2017 08:28:00 01/21/2018 00:01:00 DIS Outpatient NATALY CLARKE MD [facility] ONC [id number] 06/18/2017 14:15:00 09/16/2017 00:01:00 DIS Outpatient NATALY CLARKE MD [facility] ONC [id number] 06/17/2017 14:36:00 06/17/2017 23:59:59 CLS Outpatient NATALY CLARKE MD [facility] RAD I26.99 [id number] 04/14/2017 13:14:00 06/07/2017 00:01:00 DIS Outpatient NATALY CLARKE MD [facility] ONC [id number] 03/27/2017 10:11:00 04/10/2017 13:28:00 DIS Outpatient LULU DILLON MD [facility] ONC [id number] 04/03/2017 14:36:00 04/03/2017 23:59:59 CLS Outpatient LULU DILLON MD [facility] RAD R16.1 SPLEEN ENLARGED [id number] 03/11/2017 23:45:00 03/15/2017 14:23:00 DIS Inpatient JEN HENNESSY, BETZAIDA Goetz [facility] 4TH BILATERAL P.E.'S;R PULMONARY INFARCT VS INFILTRATE [id number] 03/02/2017 09:18:00 03/02/2017 11:09:00 DIS Emergency JENA NOLAN APRN [facility] ER R SIDE ARM PAIN/TROUBLE BREATHING [id number] 07/20/2015 21:00:00 07/21/2015 00:13:00 DIS Emergency KAYE HENNESSY, BLADIMIR Thompson [facility] ER CHEST PAIN [id number] 09/12/2013 08:50:00 09/12/2013 12:31:00 DIS Emergency CRISTINA SILVA MD [facility] ER [id number] 04/18/2017 15:08:08 04/18/2017 23:59:59 CLS Outpatient [id number] 05/19/2017 23:48:49 05/19/2017 23:59:59 CLS Outpatient
[2018-02-25 20:40] VITALS: BP 134/84
[2018-02-25] MEDS ORDERED: morphine INJ 4 MG/ML 1 ML (VIAL/SYRINGE) IV PRN (21:45)
[2018-02-25 23:15] VITALS: BP 124/81
[2018-02-25 23:30] VITALS: BP 111/73
[2018-02-25 23:45] VITALS: BP 103/64
[2018-02-26] VITALS (13 sets, daily range): BP systolic 93–116; BP diastolic 45–74
[2018-02-26 01:04] LABS: CARDIAC PROFILE 2 < 0.30 NG/ML (<0.30); MYOGLOBIN SERUM 29.5 NG/ML (10.0-92.0)
[2018-02-26 03:28] LABS: BASOPHILS % (AUTO) 0 % (0-10); EOSINOPHILS # (AUTO) 0.2 10^3/uL (0.0-0.3); EOSINOPHILS % (AUTO) 3 % (0-10); HEMATOCRIT 36 % (35-52); HEMOGLOBIN 12.3 G/DL (11.5-16.0); LYMPHOCYTES # (AUTO) 2.2 X 10^3 (1.0-4.0); LYMPHOCYTES % (AUTO) 34 % (12-44); MEAN CORPUSCULAR HEMOGLOBIN 31 PG (25-34); MEAN CORPUSCULAR HGB CONC 35 G/DL (32-36); MEAN CORPUSCULAR VOLUME 90 FL (80-99); MEAN PLATELET VOLUME 11.2 FL (7.4-10.4); MONOCYTES # (AUTO) 0.8 X 10^3 (0.0-1.0); MONOCYTES % (AUTO) 12 % (0-12); NEUTROPHILS # (AUTO) 3.3 X 10^3 (1.8-7.8); NEUTROPHILS % (AUTO) 51 % (42-75); PLATELET COUNT 222 10^3/uL (130-400); RED BLOOD COUNT 3.96 10^6/uL (4.35-5.85); RED CELL DISTRIBUTION WIDTH 13.7 % (10.0-14.5); WHITE BLOOD COUNT 6.5 10^3/uL (4.3-11.0)
[2018-02-26 03:49] LABS: ALANINE AMINOTRANSFERASE 8 U/L (0-55); ALBUMIN 3.7 GM/DL (3.2-4.5); ALKALINE PHOSPHATASE 34 U/L (40-136); BILIRUBIN,TOTAL 0.4 MG/DL (0.1-1.0); BUN/CREATININE RATIO 13; CALCIUM 8.7 MG/DL (8.5-10.1); CARBON DIOXIDE 22 MMOL/L (21-32); CHLORIDE 107 MMOL/L (98-107); CHOLESTEROL 183 MG/DL (< 200); GFR ESTIMATED > 60; GLUCOSE 115 MG/DL (70-105); HDL CHOLESTEROL 49 MG/DL (40-60); POTASSIUM 3.8 MMOL/L (3.6-5.0); SODIUM 139 MMOL/L (135-145); TOTAL PROTEIN 6.1 GM/DL (6.4-8.2); TRIGLYCERIDES 93 MG/DL (<150); VLDL CHOLESTEROL 19 MG/DL (5-40)
[2018-02-26] MEDS: NITROGLYCERIN 0.4 MG SL TABS BTL 25'S SL PRN (04:03)
--- NOTE | 2018-02-26 07:52 | Consultation-Cardiology ---
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 Denied any shortness of breath or palpitation, came to the emergency room, workup has been negative. She is chest pain-free at this time. Denied any syncope or near syncopal episodes. Cardiac enzymes and EKG did not show any acute changes , her pain improved after receiving sublingual nitroglycerin Home Medications & Allergies Allergies: Coded Allergies: No Known Drug Allergies (Unverified , 11/16/07) Home Medication List Reviewed: Yes [id number]-Mvywnp Hx Patient Social History Marital Status: Employed/Student: employed Alcohol Use: Denies Use Recreational Drug Use: No Smoking Status: Never a Smoker 2nd Hand Smoke Exposure: No Recent Foreign Travel: No Recent Infectious Disease Expo: No Recent Hopitalizations: No Physical Abuse Screen: No Sexual Abuse: No Immunizations Up To Date Tetanus Booster (TDap): Unknown Date of Influenza Vaccine: Jun 08, 2013 Past Medical History As described below Family Medical History Significant Family History: DVT/PE, Diabetes, Hypertension Family History: Asthma 19 MOTHER Cardiovascular disease 19 FATHER (heart problems) Cataracts G8 BROTHER (surgery x2 on eyes) Deafness or hearing loss G8 BROTHER (ear problems surgery on ears) Diabetes mellitus 19 FATHER Hypercholesterolemia 19 MOTHER Hypertension 19 FATHER 19 MOTHER Respiratory disorder G8 BROTHER (smokes) Constitutional: no symptoms reported, see HPI EENTM: see HPI, no symptoms reported Respiratory: see HPI; No cough, No dyspnea on exertion, No hemoptysis, No orthopnea, No phlegm, No short of breath, No stridor, No wheezing, No other Cardiovascular: see HPI, chest pain; No edema, No Hx of Intervention, No palpitations, No syncope, No vascular heart diseas, No other Gastrointestinal: no symptoms reported, see HPI Genitourinary: no symptoms reported, see HPI Musculoskeletal: no symptoms reported, see HPI Skin: no symptoms reported, see HPI Psychiatric/Neurological: No Symptoms Reported, See HPI Reviewed Test Results Reviewed Test Results Lab Laboratory Tests Test 02/25/18 18:20 02/26/18 00:40 02/26/18 03:05 Range/Units White Blood Count 7.4 6.5 4.3-11.0 10^3/uL Red Blood Count 4.31 L 3.96 L 4.35-5.85 10^6/uL Hemoglobin 13.6 12.3 11.5-16.0 G/DL Hematocrit 39 36 35-52 % Mean Corpuscular Volume 91 90 80-99 FL Mean Corpuscular Hemoglobin 32 31 25-34 PG Mean Corpuscular Hemoglobin Concent 35 35 32-36 G/DL Red Cell Distribution Width 13.7 13.7 10.0-14.5 % Platelet Count 241 222 130-400 10^3/uL Mean Platelet Volume 11.2 H 11.2 H 7.4-10.4 FL Neutrophils (%) (Auto) 61 51 42-75 % Lymphocytes (%) (Auto) 25 34 12-44 % Monocytes (%) (Auto) 12 12 0-12 % Eosinophils (%) (Auto) 1 3 0-10 % Basophils (%) (Auto) 0 0 0-10 % Neutrophils # (Auto) 4.5 3.3 1.8-7.8 X 10^3 Lymphocytes # (Auto) 1.9 2.2 1.0-4.0 X 10^3 Monocytes # (Auto) 0.9 0.8 0.0-1.0 X 10^3 Eosinophils # (Auto) 0.1 0.2 0.0-0.3 10^3/uL Basophils # (Auto) 0.0 0.0 0.0-0.1 10^3/uL Prothrombin Time 13.2 12.2-14.7 SEC INR Comment 1.0 0.8-1.4 Activated Partial Thromboplast Time 29 24-35 SEC Sodium Level 142 139 135-145 MMOL/L Potassium Level 4.0 3.8 3.6-5.0 MMOL/L Chloride Level 109 H 107 98-107 MMOL/L Carbon Dioxide Level 21 22 21-32 MMOL/L Anion Gap 12 10 5-14 MMOL/L Blood Urea Nitrogen 10 10 7-18 MG/DL Creatinine 0.92 0.80 0.60-1.30 MG/DL Estimat Glomerular Filtration Rate > 60 > 60 BUN/Creatinine Ratio 11 13 Glucose Level 87 115 H 70-105 MG/DL Calcium Level 9.6 8.7 8.5-10.1 MG/DL Magnesium Level 2.3 1.8-2.4 MG/DL Total Bilirubin 0.5 0.4 0.1-1.0 MG/DL Aspartate Amino Transf (AST/SGOT) 16 9 5-34 U/L Alanine Aminotransferase (ALT/SGPT) 11 8 0-55 U/L Alkaline Phosphatase 43 34 L 40-136 U/L Total Creatine Kinase 60 29-168 U/L Creatine Kinase MB 0.3 <6.6 NG/ML Troponin I < 0.30 < 0.30 <0.30 NG/ML B-Type Natriuretic Peptide 18.6 <100.0 PG/ML Total Protein 7.9 6.1 L 6.4-8.2 GM/DL Albumin 4.5 3.7 3.2-4.5 GM/DL Amylase Level 28 25-125 U/L Lipase 29 8-78 U/L Serum Test, Qualitative NEGATIVE NEGATIVE Myoglobin 29.5 10.0-92.0 NG/ML Triglycerides Level 93 <150 MG/DL Cholesterol Level 183 < 200 MG/DL LDL Cholesterol Direct 126 1-129 MG/DL VLDL Cholesterol 19 5-40 MG/DL HDL Cholesterol 49 40-60 MG/DL Physical Exam Vital Signs Vital Signs - First Documented 02/25/18 18:18 Temp 98.0 Pulse 73 Resp 18 B/P (MAP) 134/75 (94) Pulse Ox 98 O2 Delivery Room Air Capillary Refill : Less Than 3 Seconds General Appearance: No Apparent Distress, WD/WN Eyes: Bilateral Eye Normal Inspection, Bilateral Eye PERRL, Bilateral Eye EOMI HEENT: PERRL/EOMI, TMs Normal, Normal ENT Inspection, Pharynx Normal Neck: Full Range of Motion, Normal Inspection, Non Tender, Supple, Carotid Bruit Respiratory: Chest Non Tender, Lungs Clear, Normal Breath Sounds, No Accessory Muscle Use, No Respiratory Distress Cardiovascular: Regular Rate, Rhythm, No Edema, No Gallop, No JVD, No Murmur, Normal Peripheral Pulses Gastrointestinal: Normal Bowel Sounds, No Organomegaly, No Pulsatile Mass, Non Tender, Soft Back: Normal Inspection, No CVA Tenderness, No Vertebral Tenderness Extremity: Normal Capillary Refill, Normal Inspection, Normal Range of Motion, Non Tender, No Calf Tenderness, No Pedal Edema Neurologic/Psychiatric: Alert, Oriented x3, No Motor/Sensory Deficits, Normal Mood/Affect Skin: Normal Color, Warm/Dry Lymphatic: No Adenopathy A/P-Cardiology Admission Diagnosis Chest pain nonspecific etiology DVT Pulmonary embolism Seasonal allergy Assessment/Plan Chest pain nonspecific etiology, improved after supple and 1 nitroglycerin, Cardec and signed an EKG were negative. Planning to evaluate stress test. History of DVT/PE diagnosed last year, CTA of the chest was negative. Seasonal allergy Strong family history of heart disease Clinical Quality Measures AMI/AHF: ASA po Prior to arrival: No DVT/VTE Risk/Contraindication: Risk Factor Score Per Nursin RFS Level Per Nursing on Admit: 1=Low/No VTE PPX STALIN MONTGOMERY MD Feb 26, 2018 07:52
--- NOTE | 2018-02-26 08:37 | Short Stay Summary ---
History of Present Illness History of Present Illness Date of Admission Feb 25, 2018 at 20:16 Date of Discharge Attending Physician Betzaida Li MD Admitting Physician Betzaida Li MD Consult Allergies and Home Medications Allergies Coded Allergies: No Known Drug Allergies (Unverified , 11/16/07) Home Medications Bismuth Subsalicylate 262 Mg/15 Ml Oral.susp, 30 ML PO UD PRN for DIARRHEA, ( Reported) Cetirizine HCl 10 Mg Tablet, 10 MG PO DAILY, (Reported) Fluticasone Propionate 16 Gm [place].susp, 1 SPRAY NS BID PRN for ALLERGIES, ( Reported) Hydrocodone Bit/Acetaminophen 1 Each Tablet, 1 TAB PO Q4H PRN for PAIN-MODERATE Prescribed by: PER WALL on 03/15/17 1139 Lactobacillus Acidophilus 1 Each Capsule, 1 CAP PO DAILY, (Reported) Levothyroxine Sodium 50 Mcg Tablet, 50 MCG PO DAILY, (Reported) Montelukast Sodium 10 Mg Tablet, 10 MG PO HS, (Reported) Ondansetron HCl 4 Mg Tab, 4 MG PO Q6H Prescribed by: PER WALL on 03/15/17 1139 Ranitidine HCl 150 Mg Tablet, 300 MG PO HS, (Reported) TAKES 2 (150MG) TABLETS Rivaroxaban 15 Mg Tablet, 15 MG PO BID@ Prescribed by: LULU DILLON on 03/14/17 1050 Rivaroxaban 20 Mg Tablet, 20 MG PO DAILY START XARELTO 20MG AFTER XARELTO 15MG BID X21 DAYS IS COMPLETE FOLLOW UP WITH PCP FOR REFILLS Prescribed by: LULU DILLON on 03/14/17 1050 Vitamin B Complex 1 Each Capsule, 1 CAP PO DAILY, (Reported) Past Ftsfnaj-Nvtyum-Lkepsh Hx Patient Social History Marrital Status: Employed/Student: employed Alcohol Use: Denies Use Recreational Drug Use: No Smoking Status: Never a Smoker 2nd Hand Smoke Exposure: No Physical Abuse Screen: No Sexual Abuse: No Recent Foreign Travel: No Contact w/other who traveled: No Recent Hopitalizations: No Recent Infectious Disease Expo: No Immunizations Up To Date Tetanus Booster (TDap): Unknown Pediatric: Yes Date of Influenza Vaccine: Jun 08, 2013 Seasonal Allergies Seasonal Allergies: Yes Surgeries Yes (r ovary removed) Appendectomy, Section, Gallbladder, Oophorectomy Respiratory Yes Currently Using CPAP: No Currently Using BIPAP: No Cardiovascular No Neurological No Reproductive System Hx Reproductive Disorders: No Sexually Transmitted Disease: No HIV/AIDS: No Female Reproductive Disorders: Denies, Ovarian Cyst Genitourinary No Gastrointestinal No Musculoskeletal Yes Arthritis, Chronic Back Pain Endocrine History of Endocrine Disorders: No HEENT History of HEENT Disorders: No Cancer No Psychosocial History of Psychiatric Problem: No Integumentary History of Skin or Integumenta: No Blood Transfusions History of Blood Disorders: Yes (COAGULATION DEFECT) Adverse Reaction to a Blood Tr: No Family Medical History Significant Family History: DVT/PE, Diabetes, Hypertension Family Hx: Asthma 19 MOTHER Cardiovascular disease 19 FATHER (heart problems) Cataracts G8 BROTHER (surgery x2 on eyes) Deafness or hearing loss G8 BROTHER (ear problems surgery on ears) Diabetes mellitus 19 FATHER Hypercholesterolemia 19 MOTHER Hypertension 19 FATHER 19 MOTHER Respiratory disorder G8 BROTHER (smokes) Physical Exam Vital Signs Vital Signs - First Documented 02/25/18 18:18 Temp 98.0 Pulse 73 Resp 18 B/P (MAP) 134/75 (94) Pulse Ox 98 O2 Delivery Room Air Capillary Refill : Less Than 3 Seconds Clinical Quality Measures AMI/AHF: ASA po Prior to arrival: No DVT/VTE Risk/Contraindication: Risk Factor Score Per Nursin RFS Level Per Nursing on Admit: 1=Low/No VTE PPX Short Stay Diagnosis Conclusion Labs Laboratory Tests 02/25/18 18:20: White Blood Count 7.4, Red Blood Count 4.31L, Hemoglobin 13.6, Hematocrit 39, Mean Corpuscular Volume 91, Mean Corpuscular Hemoglobin 32, Mean Corpuscular Hemoglobin Concent 35, Red Cell Distribution Width 13.7, Platelet Count 241, Mean Platelet Volume 11.2H, Neutrophils (%) (Auto) 61, Lymphocytes (%) (Auto) 25 , Monocytes (%) (Auto) 12, Eosinophils (%) (Auto) 1, Basophils (%) (Auto) 0, Neutrophils # (Auto) 4.5, Lymphocytes # (Auto) 1.9, Monocytes # (Auto) 0.9, Eosinophils # (Auto) 0.1, Basophils # (Auto) 0.0, Prothrombin Time 13.2, INR Comment 1.0, Activated Partial Thromboplast Time 29, Sodium Level 142, Potassium Level 4.0, Chloride Level 109H, Carbon Dioxide Level 21, Anion Gap 12 , Blood Urea Nitrogen 10, Creatinine 0.92, Estimat Glomerular Filtration Rate > 60, BUN/Creatinine Ratio 11, Glucose Level 87, Calcium Level 9.6, Magnesium Level 2.3, Total Bilirubin 0.5, Aspartate Amino Transf (AST/SGOT) 16, Alanine Aminotransferase (ALT/SGPT) 11, Alkaline Phosphatase 43, Total Creatine Kinase 60, Creatine Kinase MB 0.3, Troponin I < 0.30, B-Type Natriuretic Peptide 18.6, Total Protein 7.9, Albumin 4.5, Amylase Level 28, Lipase 29, Serum Test, Qualitative NEGATIVE 02/26/18 00:40: Troponin I < 0.30, Myoglobin 29.5 02/26/18 03:05: White Blood Count 6.5, Red Blood Count 3.96L, Hemoglobin 12.3, Hematocrit 36, Mean Corpuscular Volume 90, Mean Corpuscular Hemoglobin 31, Mean Corpuscular Hemoglobin Concent 35, Red Cell Distribution Width 13.7, Platelet Count 222, Mean Platelet Volume 11.2H, Neutrophils (%) (Auto) 51, Lymphocytes (%) (Auto) 34 , Monocytes (%) (Auto) 12, Eosinophils (%) (Auto) 3, Basophils (%) (Auto) 0, Neutrophils # (Auto) 3.3, Lymphocytes # (Auto) 2.2, Monocytes # (Auto) 0.8, Eosinophils # (Auto) 0.2, Basophils # (Auto) 0.0, Sodium Level 139, Potassium Level 3.8, Chloride Level 107, Carbon Dioxide Level 22, Anion Gap 10, Blood Urea Nitrogen 10, Creatinine 0.80, Estimat Glomerular Filtration Rate > 60, BUN/ Creatinine Ratio 13, Glucose Level 115H, Calcium Level 8.7, Total Bilirubin 0.4 , Aspartate Amino Transf (AST/SGOT) 9, Alanine Aminotransferase (ALT/SGPT) 8, Alkaline Phosphatase 34L, Total Protein 6.1L, Albumin 3.7, Triglycerides Level 93, Cholesterol Level 183, LDL Cholesterol Direct 126, VLDL Cholesterol 19, HDL Cholesterol 49 BETZAIDA LI MD Feb 26, 2018 08:37
[2018-02-26] MEDS ORDERED: ASPI-983 PO (08:41)
[2018-02-26] MEDS ORDERED: RANI150T46 PO (08:41)
--- NOTE | 2018-02-26 08:43 | Discharge Inst-Complex ---
PDI Med Rec & Follow Up Appt. New Medications: Aspirin (Aspirin EC) 81 Mg Tablet.dr 81 MG PO DAILY, #30 TAB 3 Refills Changed Medications: Ranitidine HCl (Zantac) 150 Mg Tablet 150 MG PO BID, #60 TAB (Changed from: 300 MG; HS; Removed Instructions) Continued Medications: Bismuth Subsalicylate (Pepto-Bismol) 262 Mg/15 Ml Oral.susp 30 ML PO UD PRN for DIARRHEA, ML Cetirizine HCl (Zyrtec) 10 Mg Tablet 10 MG PO DAILY, TAB Fluticasone Propionate (Fluticasone Propionate) 16 Gm Bath.susp 1 SPRAY NS BID PRN for ALLERGIES, SPRAY Lactobacillus Acidophilus (Acidophilus) 1 Each Capsule 1 CAP PO DAILY, CAP Levothyroxine Sodium (Levothyroxine Sodium) 50 Mcg Tablet 50 MCG PO DAILY, TAB Montelukast Sodium (Montelukast Sodium) 10 Mg Tablet 10 MG PO HS, TAB Vitamin B Complex (Vitamin B Complex) 1 Each Capsule 1 CAP PO DAILY, CAP Discontinued Medications: Hydrocodone Bit/Acetaminophen (Hydrocodone/Acetaminophen 5/325mg Tablet) 1 Each Tablet 1 TAB PO Q4H PRN for PAIN-MODERATE, #30 TAB Ondansetron HCl (Zofran) 4 Mg Tab 4 MG PO Q6H for Nausea, #20 TAB Rivaroxaban (Xarelto) 15 Mg Tablet 15 MG PO BID@07,17, #42 TAB Rivaroxaban (Xarelto) 20 Mg Tablet 20 MG PO DAILY, #30 TAB START XARELTO 20MG AFTER XARELTO 15MG BID X21 DAYS IS COMPLETE FOLLOW UP WITH PCP FOR REFILLS Activity, Diet and PDI Resume Normal Activity: Yes Discharge Diet: Regular Diet Drink 6-8 Glasses of Fluid/Day: Yes Driving Instructions: You May Drive Symptoms to Reoprt to Dr.: Appetite Changes, Fever Over 101 Degrees F, Pain/ Pressure in Chest, Cough Up/Vomit Blood, Dizziness/Fainting For Problems or Questions: Contact Your Physician, Go to Emergency Room BETZAIDA LI MD Feb 26, 2018 08:43
[2018-02-26] MEDS ORDERED: ASPIRIN E.C. 81 MG (ECOTRIN) TAB PO SCH (09:00)
== END 2018-02-26 10:45 | disposition home or self-care (01) ==
LOC: EDUNIT# 18:18 → ER 18:19 → ICU 20:16
PROVIDERS: ADMIT Family Medicine; ATTEND Family Medicine
DX: R07.89 Other chest pain (principal); J45.909 Unspecified asthma, uncomplicated; I07.1 Rheumatic tricuspid insufficiency; Z86.711 Personal history of pulmonary embolism; Z86.718 Personal history of other venous thrombosis and embolism; Z82.49 Family history of ischemic heart disease and other diseases of the circulatory system
CPT/HCPCS: 36415; 71045; 71275; 80053; 80061; 82150; 82550; 82553; 83690; 83735; 83874; 83880; 84484; 84703; 85025; 85610; 85730; 93005; 93017; 93041; 93306

== ENCOUNTER → 2018-04-23 | Outpatient (CLI) | payer BC ==
[~2018-04-23] MED LIST changes: +ASPI-983 PO
[2018-04-23 09:58] LABS: FREE T4 (FREE THYROXINE) 1.13 NG/DL (0.70-1.48)
== END ==
LOC: LAB 08:57
PROVIDERS: ATTEND Family Medicine
DX: E03.9 Hypothyroidism, unspecified (principal)
CPT/HCPCS: 36415; 84439; 84443

== ENCOUNTER → 2018-04-23 | Outpatient (CLI) | payer BC ==
[2018-04-23 09:08] LABS: BASOPHILS % (AUTO) 1 % (0-10); EOSINOPHILS # (AUTO) 0.2 10^3/uL (0.0-0.3); EOSINOPHILS % (AUTO) 3 % (0-10); HEMATOCRIT 42 % (35-52); HEMOGLOBIN 14.2 G/DL (11.5-16.0); LYMPHOCYTES # (AUTO) 1.3 X 10^3 (1.0-4.0); LYMPHOCYTES % (AUTO) 27 % (12-44); MEAN CORPUSCULAR HEMOGLOBIN 31 PG (25-34); MEAN CORPUSCULAR HGB CONC 34 G/DL (32-36); MEAN CORPUSCULAR VOLUME 91 FL (80-99); MEAN PLATELET VOLUME 11.4 FL (7.4-10.4); MONOCYTES # (AUTO) 0.5 X 10^3 (0.0-1.0); MONOCYTES % (AUTO) 9 % (0-12); NEUTROPHILS % (AUTO) 60 % (42-75); PLATELET COUNT 204 10^3/uL (130-400); RED BLOOD COUNT 4.61 10^6/uL (4.35-5.85); RED CELL DISTRIBUTION WIDTH 13.2 % (10.0-14.5)
[2018-04-23 09:35] LABS: ALANINE AMINOTRANSFERASE 15 U/L (0-55); ALBUMIN 4.4 GM/DL (3.2-4.5); ALKALINE PHOSPHATASE 48 U/L (40-136); BILIRUBIN,TOTAL 0.4 MG/DL (0.1-1.0); BUN/CREATININE RATIO 9; CALCIUM 9.5 MG/DL (8.5-10.1); CARBON DIOXIDE 22 MMOL/L (21-32); CHLORIDE 107 MMOL/L (98-107); CREATININE SERUM 0.94 MG/DL (0.60-1.30); GFR ESTIMATED > 60; GLUCOSE 87 MG/DL (70-105); POTASSIUM 4.1 MMOL/L (3.6-5.0); SODIUM 138 MMOL/L (135-145); TOTAL PROTEIN 7.6 GM/DL (6.4-8.2)
== END ==
LOC: EDSTATUS 01-22 08:48 → ONC 08:51
PROVIDERS: ATTEND Internal Medicine Hematology & Oncology
DX: D68.8 Other specified coagulation defects (principal); Z86.711 Personal history of pulmonary embolism; E03.9 Hypothyroidism, unspecified; R16.1 Splenomegaly, not elsewhere classified; E66.9 Obesity, unspecified; Z68.31 Body mass index [BMI] 31.0-31.9, adult; Z83.2 Family history of diseases of the blood and blood-forming organs and certain disorders involving the immune mechanism; Z79.899 Other long term (current) drug therapy; Z79.82 Long term (current) use of aspirin
CPT/HCPCS: 36415; 80053; 85025; 99213

== ENCOUNTER → 2019-04-22 | Outpatient (CLI) | payer BC ==
[~2019-04-22] MED LIST changes: +RANI-613 PO; -RANI150T46 PO; -RIVA15TA PO; +RIVA15TA2 PO; -RIVA20TA PO; +RIVA20TA2 PO
[2019-04-22 09:06] LABS: BASOPHILS % (AUTO) 0 % (0-10); EOSINOPHILS # (AUTO) 0.2 10^3/uL (0.0-0.3); EOSINOPHILS % (AUTO) 3 % (0-10); HEMATOCRIT 41 % (35-52); HEMOGLOBIN 13.6 G/DL (11.5-16.0); LYMPHOCYTES # (AUTO) 1.7 X 10^3 (1.0-4.0); LYMPHOCYTES % (AUTO) 24 % (12-44); MEAN CORPUSCULAR HEMOGLOBIN 30 PG (25-34); MEAN CORPUSCULAR HGB CONC 33 G/DL (32-36); MEAN CORPUSCULAR VOLUME 91 FL (80-99); MEAN PLATELET VOLUME 10.8 FL (7.4-10.4); MONOCYTES # (AUTO) 0.7 X 10^3 (0.0-1.0); MONOCYTES % (AUTO) 10 % (0-12); NEUTROPHILS # (AUTO) 4.4 X 10^3 (1.8-7.8); NEUTROPHILS % (AUTO) 62 % (42-75); PLATELET COUNT 282 10^3/uL (130-400); RED CELL DISTRIBUTION WIDTH 13.2 % (10.0-14.5); WHITE BLOOD COUNT 7.1 10^3/uL (4.3-11.0)
[2019-04-22 09:19] LABS: ALBUMIN 4.2 GM/DL (3.2-4.5); BILIRUBIN,TOTAL 0.5 MG/DL (0.1-1.0); CREATININE SERUM 1.06 MG/DL (0.60-1.30); POTASSIUM 4.2 MMOL/L (3.6-5.0); TOTAL PROTEIN 7.6 GM/DL (6.4-8.2)
== END ==
LOC: ONC 08:40
PROVIDERS: ATTEND Internal Medicine Hematology & Oncology
DX: D68.8 Other specified coagulation defects (principal); Z86.711 Personal history of pulmonary embolism; E03.9 Hypothyroidism, unspecified; R16.1 Splenomegaly, not elsewhere classified; E66.9 Obesity, unspecified; Z68.31 Body mass index [BMI] 31.0-31.9, adult; Z83.2 Family history of diseases of the blood and blood-forming organs and certain disorders involving the immune mechanism; Z79.899 Other long term (current) drug therapy; Z79.82 Long term (current) use of aspirin
CPT/HCPCS: 36415; 80053; 85025; 99213